=== PATIENT | female | born 1965 | race African-American/Black ===

== ENCOUNTER 2017-11-24 11:17 | Day surgery (SDC) | payer MEDICAID ==
[~2017-11-24 11:17] MED LIST: Buffered Lidocaine 0.9% SYRIN* 5 ML/SYR SYRINGE INTRADERM ONE
[2017-11-24] MEDS ORDERED: Clindamycin 900 MG IVPREMIX(* 900 MG/50 ML SDV IV ONE ×2 (11:59)
[2017-11-24] MEDS ORDERED: fentaNYL* 50 MCG/ML 2 ML VIAL (100 MCG VIAL) ONE ×2 (12:51)
[2017-11-24] MEDS ORDERED: Midazolam* 1 MG/ML 2 ML VIAL (2 MG) ONE ×2 (12:51)
[2017-11-24] MEDS ORDERED: Propofol* 10 MG/ML 20 ML BTL IV PUSH ONE ×2 (12:53)
[2017-11-24] MEDS ORDERED: Bupivacaine 0.25% SDV* 30 ML ONE ×6 (12:53→14:47)
[2017-11-24] MEDS ORDERED: Glycopyrrolate IV* 0.2 MG/ML 1 ML VIAL ONE ×6 (13:09→14:38)
[2017-11-24] MEDS ORDERED: Neostigmine Methylsulfate* 2 MG/2 ML SYRINGE ONE ×6 (13:09→14:38)
[2017-11-24] MEDS ORDERED: Succinylcholine* 20 MG/ML 10 ML VIAL ONE ×2 (13:38)
[2017-11-24] MEDS ORDERED: Dexamethasone IV* 4 MG/ML 1 ML (4 MG) ONE ×2 (13:38)
[2017-11-24] MEDS ORDERED: Atracurium* 10 MG/ML 10 ML VIAL ONE ×2 (13:38)
[2017-11-24] MEDS ORDERED: Ondansetron INJ* 2 MG/ML VIAL IV PRN (14:17)
[2017-11-24] MEDS ORDERED: fentaNYL* 50 MCG/ML 2 ML VIAL (100 MCG VIAL) IV PRN (14:17)
[2017-11-24] MEDS ORDERED: Naloxone* 0.4 MG/ML 1 ML VIAL IV PRN (14:17)
[2017-11-24] MEDS ORDERED: DiMENhydriNATE IV* 50 MG/ML VIAL IV PUSH PRN (14:17)
[2017-11-24] MEDS ORDERED: oxyCODONE/Acetamin 5/325 MG* TAB PO PRN (14:17)
[2017-11-24] MEDS ORDERED: HYDROcodone/ACETAMIN 5-325 MG* 1 TAB PO PRN (14:17)
[2017-11-24] MEDS ORDERED: HYDROmorphone INJ* 1 MG/ML CARPUJECT SYRINGE IV PRN (14:17)
[2017-11-24] MEDS ORDERED: methylPREDNISolone ACETATE 80* 80 MG/ML 1 ML VIAL ONE ×2 (14:24)
[2017-11-24] MEDS ORDERED: Ondansetron INJ* 2 MG/ML VIAL ONE ×2 (14:30)
[2017-11-24] MEDS ORDERED: Acetaminophen TAB* 325 MG ONE ×2 (15:20)
[2017-11-24] MEDS ORDERED: Ibuprofen TAB* 600 MG ONE ×2 (15:21)
[2017-11-24 16:08] VITALS: BP 177/95
--- NOTE | 2017-11-25 01:34 | OP ---
DATE OF OPERATION: 11/24/17 - [facility] DATE OF : 61 SURGEON: Marcella Hernandez MD ASSISTANTS: YOHAN Sykes and Robin Carrasquillo MS-III ANESTHESIOLOGIST: Dr. Mayberry. ANESTHESIA: General interscalene block. PRE-OP DIAGNOSIS: Right shoulder osteoarthritis. POST-OP DIAGNOSES: Right shoulder osteoarthritis with subacromial impingement and foreign body. OPERATIVE PROCEDURE: 1. Right shoulder arthroscopy with debridement including chondroplasty. 2. Removal of foreign body. 3. Revision decompression, debridement. 4. Intraarticular injection of 80 mg of Depo-Medrol. COMPLICATIONS: None. ESTIMATED BLOOD LOSS: Minimal. IMPLANTS USED: None. INDICATIONS: Maia Kendrick is a 52-year-old female who has had right shoulder pain and osteoarthritis for some time. She does not have all of her records, but had to have had some sort of Bankart repair with a possible rotator cuff repair. She has an MRI demonstrated and x-rays advanced osteoarthritis in the glenohumeral joint as well as small foreign body in the glenoid anteriorly that is impinging against the anterior surface of the supraspinatus. Risks and benefits of surgery versus nonoperative treatment were discussed at length. The patient is young and I would ultimately recommend a total shoulder replacement, but she has explicitly stated she will not be compliant with postoperative restrictions. At this point, we are offering her arthroscopy with debridement in the hopes that she gets some relief from her symptoms. DESCRIPTION OF PROCEDURE: The patient was greeted in the preoperative area by the attending surgeon. Correct extremity was marked and consent was confirmed. The patient underwent interscalene nerve block by the anesthesiologist after which she was brought back to the operating suite, where she was placed in supine position on the operating table. She then underwent general anesthesia with endotracheal intubation after which she was placed in the left lateral decubitus position with bony prominences padded, axillary roll. She was secured with a peg board. The right shoulder was draped with 10 pounds of traction. The right shoulder was prepped and draped in the usual sterile fashion beginning with chlorhexidine soap scrub and alcohol wipe and a final prep with ChloraPrep. After appropriate surgical pause indicating side, site, and procedure and administration of antibiotics, the standard posterolateral portal was made sharply with an 11 blade. Scope was introduced into the joint, the joint was examined. There were grade 3 and 4 changes with unstable flaps of the humeral head as well as a glenoid. The anterior posterior and superior glenoid had unstable frame which was debrided back. The subscap appeared to be intact. There was abundant synovitis anteriorly. The undersurface of the rotator cuff had an intact cable, but partial thickness tearing. Inferior recess had abundant synovitis. The anterior portal was made in an outside-in fashion. The shaver was used to do a chondroplasty of the glenohumeral joint and remove the unstable flaps. There were small loose bodies that were floating around which was lavaged. The osteophyte inferiorly was debrided back. A gentle synovectomy was done to prevent any kind of diffuse bleeding. The subscap was examined. The 70-degree scope was then utilized to look for the possible penetrating foreign body, which was identified and appeared to be a peek anchor. This was then carefully removed in a piecemeal fashion with the shaver and grasper, so that was more blunt and further recess close to the glenoid. The joint was thoroughly lavaged and irrigated. Attention was then directed to the subacromial space. The scope was positioned in the subacromial space. The lateral portal was made in an outside-in fashion. The shaver was used to debride the abundant bursa that was present. The rotator cuff appeared to be intact, but had a roughness to it. There was a bursa that was present and evidence of a previous subacromial decompression. No evidence of rotator cuff repair. No sutures were identified. The shaver was used to debride the bursa back. The electrocautery device was used to skeletonize the under surface of the acromion. Previous acromioplasty had been done, but there was an irregular edge. This was then debrided back using a 4-0 oval bur. Once this was complete, final images were obtained. An 18-gauge needle was placed intra- articularly and 80 mg of Depo- Medrol and 5 cc of Marcaine was injected intra- articularly. Sterile dressings were applied as well as a Cryo/Cuff and a regular sling. She was awoken from anesthesia and transferred to the PACU in stable condition. POSTOPERATIVE PLAN: She will be nonweightbearing. She will be range of motion as tolerated. Discharged on pain medications as well as antibiotics. DVT prophylaxis considered, but deferred due to no previous personal or family history. I will see the patient back in 10 to 14 days. [id number]/[facility] #: [id number] [place]
== END 2017-11-24 15:45 | disposition home or self-care (01) ==
LOC: OR 11:17
PROVIDERS: ATTEND Orthopaedic Surgery
DX: M75.41 Impingement syndrome of right shoulder (principal); M19.011 Primary osteoarthritis, right shoulder; F17.210 Nicotine dependence, cigarettes, uncomplicated; I10 Essential (primary) hypertension; J44.9 Chronic obstructive pulmonary disease, unspecified; J45.909 Unspecified asthma, uncomplicated; F41.8 Other specified anxiety disorders; G40.89 Other seizures
CPT/HCPCS: A9270-GY; J0330; J1040; J1100; J2250; J2405; J2704; J3010

== ENCOUNTER 2018-01-19 05:52 | Inpatient (IN) | payer MEDICAID ==
--- NOTE | 2018-01-05 22:31 | HP ---
HISTORY AND PHYSICAL: DATE OF SURGERY: 01/19/18 ATTENDING SURGEON: Marcella Hernandez MD * (DICTATED BY YOHAN CRUZ) PROCEDURE: Right total shoulder replacement. CHIEF COMPLAINT: Right shoulder pain. HISTORY OF PRESENT ILLNESS: Maia is a 52-year-old female who presents to the clinic for followup of her right shoulder. She has failed conservative measures to include right shoulder arthroscopic decompression and removal of foreign body, intraarticular injections and physical therapy. Therefore, she has agreed to undergo a right total shoulder replacement with Dr. Hernandez on . PAST MEDICAL HISTORY: Hypertension, COPD, asthma, high cholesterol, arthritis, hep B and C, lupus, seizure disorder, anxiety, depression, fibromyalgia. PAST SURGICAL HISTORY: At least 30 surgeries including the right shoulder Bankart repair and recent right shoulder arthroscopy with debridement and removal of foreign body and intraarticular injection with Dr. Hernandez. MEDICATIONS: 1. Hydroxyzine 50 mg 1 to 2 tabs at night for insomnia. 2. Nicotrol 10 mg 1 cartridge daily. 3. Stool softener 100 mg take 1 by mouth 3 times a day as needed for constipation. 4. Percocet 5/325 one to two every 4 to 6 hours as needed for pain. 5. Clindamycin 300 mg 1 by mouth 4 times a day x3 days. 6. Estradiol 1 mg 1 by mouth everyday. 7. Ibuprofen 600 mg 3 times a day, take with food. 8. Celexa 20 mg 1 by mouth daily. 9. Cyclobenzaprine 10 mg by mouth 3 times a day as needed for spasms. 10. Klonopin 1 mg 1 by mouth twice a day as needed for anxiety. 11. Sumatriptan 100 mg take 1 at onset of migraine, may repeat in 1 to 2 hours. ALLERGIES: KEFLEX, NAPROXEN, LATEX. FAMILY HISTORY: Positive for cancer, rheumatoid arthritis. SOCIAL HISTORY: She lives with her child, she is disabled. She smokes 1 pack a day for 42 years. She reports alcohol consumption. She exercises regularly. She is right hand dominant. REVIEW OF SYSTEMS: A 14-point review of systems was reviewed with the patient. Positive for current complaint of right shoulder pain, otherwise negative. Denies fever, chills, chest pain or shortness of breath, history of bleeding disorder, history of DVT or PE. PHYSICAL EXAMINATION GENERAL: A 52-year-old well-developed well-nourished female, in no acute distress. Alert and oriented x3. Appropriate mood and affect. VITAL SIGNS: Pulse 69, blood pressure 110/60, respiratory rate 16, temperature 97.7, pain level 6. HEENT: Normocephalic, atraumatic, PERRLA. NECK: Supple. Throat clear. PULMONARY: Lungs clear to auscultation bilaterally. No wheezing, rhonchi, or rales. CARDIO: Regular rate and rhythm, S1, S2. No murmurs, gallops, or rubs. No edema. ABDOMEN: Positive bowel sounds. Soft, nontender. NEUROLOGICAL: Alert and oriented x3. Cranial nerves grossly intact. Sensation intact to light touch. EXTREMITIES: Right upper extremity: Skin is intact. Well-healed surgical incision. No warmth or erythema. Forward flexion, abduction 90, external rotation to 30 with pain, +4/5 strength to rotator cuff testing, +2 radial pulse. Sensation intact to light touch distally. Left upper extremity: Skin is intact. No warmth or erythema. Nontender to palpation. Full pain-free range of motion. Neurovascularly intact. STUDIES: X-rays and MRI of the right shoulder reveal glenohumeral joint arthritis with subluxation of the humerus and partial tearing of the supraspinatus tendon. IMPRESSION: Right shoulder osteoarthritis and rotator cuff arthropathy. PLAN/RECOMMENDATIONS: The patient is scheduled to undergo a right total shoulder replacement with Dr. Hernandez on 01/19/18. She will follow up in 10 to 14 days for postop followup and suture removal. She was sent for CT for preoperative planning prior to surgery. Percocet is sent to the patient's pharmacy for postop pain management. YOHAN CRUZ [id number]/[facility] #: [id number] [place]
[2018-01-19] MEDS ORDERED: Dexamethasone IV* 4 MG/ML 1 ML (4 MG) ONE (05:58)
--- OUTSIDE RECORDS SUMMARY | 2018-01-19 05:58 | XMS REPORT ---
:1965 External Reference #:[id number] [facility] Address [address] [address] Phone [phone] Care Team Providers Name Role Phone Nir Emery MD Primary Care Physician Unavailable Payers Type Date Identification Numbers Payment Provider Subscriber Medicaid Policy Number: [id number] Medicaid Maia Kendrick Group Name: [id number] PayID: [id number] [place] [address] Problems Date Description Provider Status Onset: 09/12/2017 Depressive disorder Robert Felix NP Active Onset: 11/12/2017 Localized, primary osteoarthritis of the Marcella Hernandez MD Active shoulder region Onset: 11/12/2017 Disorder of shoulder Marcella Hernandez MD Active Onset: 11/21/2017 History of hepatitis C Robert Felix NP Active Onset: 12/09/2017 Chondromalacia Marcella Hernandez MD Active Onset: 12/09/2017 Synovitis and tenosynovitis Marcella Hernandez MD Active Family History Date Family Member(s) Problem(s) Comments General No history given Father Had 4 different types of cancers-pt. not sure which Mother due to AIDS () - at age 40 after blood transfusion Siblings 3 Sisters-Does not know hx. Social History Type Date Description Comments Marital Status Lives With Children ETOH Use Rarely consumes alcohol Smoking Patient is a current smoker, smokes 1 1/2 ppd x 40+ yrs every day Daily Caffeine Consumes on average 1 cup of regular coffee per day Daily Caffeine Cola 20 ozs 3 x week Exercise Type/Frequency Exercises regularly Allergies, Adverse Reactions, Alerts Date Description Reaction Status Severity Comments 09/08/2017 Keflex active severe stomach cramp 09/08/2017 Naproxen active severe stomach cramps 10/18/2017 Latex active Medications Medication Date Status Form Strength Qnty SIG Indications Ordering Provider Hydroxyzine HCL 12/09 Active Tablets 50mg 30tab 1-2 tablets G47.00 s QHS insomnia KARI Felix Stool Softener 11/25 Active Capsules 100mg 60cap Take 1 by s mouth three Yaseen, times a day as needed for constipation Percocet 11/24 Active Tablets 5-325mg 60tab 1-2 tabs by s mouth every Yaseen, 4-6 hours as MD needed post op pain Estradiol 09/08 Active Tablets 1mg 30tab 1 by mouth s every day KARI Felix Ibuprofen 09/08 Active Tablets 600mg 90tab take one s tablet by KARI Felix mouth three times a day as needed with food Celexa 09/08 Active Tablets 20mg 30tab 1 by mouth s every day KARI Felix Cyclobenzaprine 09/08 Active Tablets 10mg 60tab one by mouth Robert HCL s three times a KARI Felix day as needed spasm Klonopin 09/08 Active Tablets 1mg 60tab 1 by mouth Robert s twice a day KARI Felix as needed for anxiety Sumatriptan 09/08 Active Tablets 100mg 9tabs take one tablet at KARI Felix migraine onset may repeat 1 in 2 hours. Maximum monthly dose 800mg Nicotrol 12/09 Hx Inhaler 10mg 168un one cartridge Z72.0 its 6-16 times KARI Felix - daily 01/10 Clindamycin HCL 11/24 Hx Capsules 300mg 12cap take 1 by s mouth four Yaseen, - times a day 01/09 for 3 No Active 09/08 Hx Unknown Medications /2016 - 09/08 Sumatriptan 09/08 Hx Tablets 50mg 9tabs take 1 at Robert Succinate onset of KARI Felix - migraine. march 18 repeat 2 hours if needed. max 2x/week. max daily dose 100mg Gabapentin 09/08 Hx Capsules 100mg 60cap take 1 to 3 G47.00 Robert s capsules by KARI Felix - mouth at 12/09 night Lidocaine 09/08 Hx Patches 5% 30uni apply patch M79.1 ts to affected KARI Felix - area up to 12 12/10 hours once a day as needed Trazodone HCL 00/00 Hx Tablets 50mg 1 tablet at Robert /0000 bedtime as KARI Felix - needed 09/08 Medications Administered in Office Medication Date Status Form Strength Qnty SIG Indications Ordering Provider Triamcinolone 11/12/ Administered Injection Zaneb (Kenalog) 2017 MD David Triamcinolone 10/05/ Administered Injection Suze (Kenalog) 2016 MARIVEL Polo Vital Signs Date Vital Result Comment 01/10/2018 Height 61 inches 5'1" Weight 156.00 lb Heart Rate 64 /min BP Systolic Sitting 138 mmHg BP Diastolic Sitting 94 mmHg O2 % BldC Oximetry 98 % BMI (Body Mass Index) 29.5 kg/m2 01/04/2018 Heart Rate 69 /min BP Systolic 110 mmHg BP Diastolic 60 mmHg Respiratory Rate 16 /min Body Temperature 97.7 F Pain Level 6 12/09/2017 Weight 153.50 lb Heart Rate 66 /min BP Systolic 128 mmHg BP Diastolic 80 mmHg O2 % BldC Oximetry 91 % 12/09/2017 Height 61 inches 5'1" Weight 153.00 lb BP Systolic 128 mmHg BP Diastolic 80 mmHg Respiratory Rate 18 /min Body Temperature 97.3 F Pain Level 6 BMI (Body Mass Index) 28.9 kg/m2 11/12/2017 Height 61 inches 5'1" Weight 153.00 lb BP Systolic 126 mmHg BP Diastolic 76 mmHg Respiratory Rate 20 /min Pain Level 8 BMI (Body Mass Index) 28.9 kg/m2 10/18/2017 Height 61 inches 5'1" Weight 160.00 lb Heart Rate 57 /min BP Systolic Sitting 118 mmHg BP Diastolic Sitting 74 mmHg Body Temperature 98.4 F O2 % BldC Oximetry 96 % BMI (Body Mass Index) 30.2 kg/m2 10/05/2017 Height 61 inches 5'1" Weight 153.00 lb BMI (Body Mass Index) 28.9 kg/m2 09/08/2017 Height 61 inches 5'1" Weight 153.75 lb Heart Rate 57 /min BP Systolic 130 mmHg BP Diastolic 78 mmHg Body Temperature 97.6 F O2 % BldC Oximetry 99 % BMI (Body Mass Index) 29.0 kg/m2 Results Test Date Test Result H/L Range Note Inr/Protime 01/06/2018 Inr 1.02 0.77-1.02 Laboratory test finding 01/06/2018 Partial Thrombo 33.5 seconds 26.0- 36.3 Time PTT CBC Auto Diff 01/06/2018 White Blood Count 7.9 10^3/uL 3.5-10.8 Red Blood Count 5.02 10^6/uL 4.0-5.4 Hemoglobin 15.8 g/dL 12.0-16.0 Hematocrit 46 % 35-47 Mean Corpuscular Volume 92 fL 80-97 Mean Corpuscular Hemoglobin 31 pg 27-31 Mean Corpuscular HGB Conc 34 g/dL 31-36 Red Cell Distribution Width 14 % 10.5-15 Platelet Count 151 10^3/uL 150-450 Mean Platelet Volume 9 um3 7.4-10.4 Abs Neutrophils 5.0 10^3/uL 1.5-7.7 Abs Lymphocytes 2.1 10^3/uL 1.0-4.8 Abs Monocytes 0.6 10^3/uL 0-0.8 Abs Eosinophils 0.1 10^3/uL 0-0.6 Abs Basophils 0.1 10^3/uL 0-0.2 Abs Nucleated RBC 0 10^3/uL Granulocyte % 63.5 % 38-83 Lymphocyte % 26.9 % 25-47 Monocyte % 7.6 % High 0-7 Eosinophil % 1.2 % 0-6 Basophil % 0.8 % 0-2 Nucleated Red Blood Cells % 0 Urinalysis Profile 01/06/2018 Urine Color Yellow Urine Appearance Cloudy Urine Specific [place] 1.023 1.010-1.030 Urine pH 6.0 5-9 Urine Urobilinogen Negative Negative Urine Ketones Negative Negative Urine Protein Negative Negative Urine Leukocytes Trace Negative Urine Blood Negative Negative Urine Nitrite Negative Negative Urine Bilirubin Negative Negative Urine Glucose Negative Negative Urine White Blood Cell Trace(0-5/hpf) Absent Urine Red Blood Cell Absent Absent Urine Bacteria 1+ Absent Urine Squamous Epithelial Cell Present Absent Basic Metabolic Panel 01/06/2018 Sodium 144 mmol/L 133-145 Potassium 4.0 mmol/L 3.5-5.0 Chloride 109 mmol/L 101-111 Co2 Carbon Dioxide 31 mmol/L 22-32 Anion Gap 4 mmol/L 2-11 Glucose 74 mg/dL 70-100 Blood Urea Nitrogen 16 mg/dL 6-24 Creatinine 0.97 mg/dL High 0.51-0.95 BUN/Creatinine Ratio 16.5 8-20 Calcium 9.2 mg/dL 8.6-10.3 Egfr Non- 59.8 >60 Egfr 77.0 >60 1 Laboratory test finding 01/06/2018 TSH (Thyroid Stim Horm) 0.65 mcIU/mL 0.34-5.60 Free T4 (Free Thyroxine) 0.91 ng/dL 0.61-1.12 Type & Screen 01/06/2018 Patient Blood Type O Negative Antibody Screen NEGATIVE Urine Culture And 01/06/2018 Urine Culture SEE RESULT BELOW 2 Sensitivities CBC Auto Diff 12/03/2017 White Blood Count 10.5 10^3/uL 3.5-10.8 Red Blood Count 5.20 10^6/uL 4.0-5.4 Hemoglobin 16.2 g/dL High 12.0-16.0 Hematocrit 48 % High 35-47 Mean Corpuscular Volume 93 fL 80-97 Mean Corpuscular Hemoglobin 31 pg 27-31 Mean Corpuscular HGB Conc 34 g/dL 31-36 Red Cell Distribution Width 15 % 10.5-15 Platelet Count 158 10^3/uL 150-450 Mean Platelet Volume 10 um3 7.4-10.4 Abs Neutrophils 7.6 10^3/uL 1.5-7.7 Abs Lymphocytes 2.0 10^3/uL 1.0-4.8 Abs Monocytes 0.6 10^3/uL 0-0.8 Abs Eosinophils 0.2 10^3/uL 0-0.6 Abs Basophils 0.1 10^3/uL 0-0.2 Abs Nucleated RBC 0 10^3/uL Granulocyte % 73.0 % 38-83 Lymphocyte % 18.8 % Low 25-47 Monocyte % 5.3 % 1-9 Eosinophil % 1.8 % 0-6 Basophil % 1.1 % 0-2 Nucleated Red Blood Cells % 0.1 Comp Metabolic Panel 11/12/2017 Sodium 139 mmol/L 133-145 Potassium 4.1 mmol/L 3.5-5.0 Chloride 108 mmol/L 101-111 Co2 Carbon Dioxide 25 mmol/L 22-32 Anion Gap 6 mmol/L 2-11 Glucose 78 mg/dL 70-100 Blood Urea Nitrogen 14 mg/dL 6-24 Creatinine 0.82 mg/dL 0.51-0.95 BUN/Creatinine Ratio 17.1 8-20 Calcium 8.6 mg/dL 8.6-10.3 Total Protein 6.3 g/dL Low 6.4-8.9 Albumin 3.9 g/dL 3.2-5.2 Globulin 2.4 g/dL 2-4 Albumin/Globulin Ratio 1.6 1-3 Total Bilirubin 0.40 mg/dL 0.2-1.0 Alkaline Phosphatase 90 U/L 34-104 Alt 31 U/L 7-52 Ast 26 U/L 13-39 Egfr Non- 72.6 >60 Egfr 93.4 >60 3 Lipid Profile (Trig/Chol/HDL) 10/18/2017 Triglycerides 75 mg/dL 4 Cholesterol 192 mg/dL 5 HDL Cholesterol 42.6 mg/dL 6 LDL Cholesterol 134 mg/dL 7 Laboratory test finding 10/18/2017 Rheumatoid Factor <15 IU/mL <15 8 TSH (Thyroid Stim Horm) 1.10 mcIU/mL 0.34-5.60 9 Connective Tissue Panel 10/18/2017 Anti-Nuclear Antibody 2.8 U High 10 Cyclic Citrullinated Peptide <15.6 U 11 Interpretation See Comment 12 Laboratory test finding 10/18/2017 C Reactive Protein 4.22 mg/L < 5.00 13 Erythrocyte Sed Rate 8 mm/Hr 0-30 14 Comp Metabolic Panel 10/18/2017 Sodium 136 mmol/L 133-145 Potassium 4.4 mmol/L 3.5-5.0 Chloride 106 mmol/L 101-111 Co2 Carbon Dioxide 24 mmol/L 22-32 Anion Gap 6 mmol/L 2-11 Glucose 82 mg/dL 70-100 Blood Urea Nitrogen 20 mg/dL 6-24 Creatinine 0.90 mg/dL 0.51-0.95 BUN/Creatinine Ratio 22.2 High 8-20 Calcium 9.0 mg/dL 8.6-10.3 Total Protein 6.7 g/dL 6.4-8.9 Albumin 4.0 g/dL 3.2-5.2 Globulin 2.7 g/dL 2-4 Albumin/Globulin Ratio 1.5 1-3 Total Bilirubin 0.40 mg/dL 0.2-1.0 Alkaline Phosphatase 77 U/L 34-104 Alt 39 U/L 7-52 Ast 20 U/L 13-39 Egfr Non- 65.2 >60 Egfr 83.9 >60 15 CBC Auto Diff 10/18/2017 White Blood Count 13.3 10^3/uL High 3.5-10.8 Red Blood Count 5.34 10^6/uL 4.0-5.4 Hemoglobin 16.5 g/dL High 12.0-16.0 Hematocrit 49 % High 35-47 Mean Corpuscular Volume 92 fL 80-97 Mean Corpuscular Hemoglobin 31 pg 27-31 Mean Corpuscular HGB Conc 34 g/dL 31-36 Red Cell Distribution Width 14 % 10.5-15 Platelet Count 192 10^3/uL 150-450 Mean Platelet Volume 9 um3 7.4-10.4 Abs Neutrophils 10.8 10^3/uL High 1.5-7.7 Abs Lymphocytes 1.8 10^3/uL 1.0-4.8 Abs Monocytes 0.6 10^3/uL 0-0.8 Abs Eosinophils 0.1 10^3/uL 0-0.6 Abs Basophils 0.1 10^3/uL 0-0.2 Abs Nucleated RBC 0.01 10^3/uL Granulocyte % 80.6 % 38-83 Lymphocyte % 13.4 % Low 25-47 Monocyte % 4.6 % 1-9 Eosinophil % 0.7 % 0-6 Basophil % 0.7 % 0-2 Nucleated Red Blood Cells % 0 1 Because ethnic data is not always readily available, this report includes an eGFR for both -Americans and non- Americans. The National Kidney Disease Education Program (NKDEP) does not endorse the use of the MDRD equation for patients that are not between the ages of 18 and 70, are , have extremes of body size, muscle mass, or nutritional status, or are non- or non-. According to the National Kidney Foundation, irrespective of diagnosis, the stage of the disease is based on the level of kidney function: Stage Description GFR(mL/min/1.73 m(2)) 1 Kidney damage with normal or decreased GFR 90 2 Kidney damage with mild decrease in GFR 60-89 3 Moderate decrease in GFR 30-59 4 Severe decrease in GFR 15-29 5 Kidney failure <15 (or dialysis) 2 SEE RESULT BELOW Name: MAIA KENDRICK : [address]: Marcella Hernnadez MD Acct: [id number] Unit: [id number] AGE: 52 Location: [facility] Re01/06/18 SEX: F Status: REG REF SPEC: [id number] HERBERTH: 01/06/[address]: Marcella Hernandez MD REQ: [id number] RECD: 01/06/18 STATUS: COMP _ SOURCE: URINE SPDESC: ORDERED: Urine Culture QUERIES: Urine Source: Clean Catch Procedure Result Reported Site Urine Culture Final 01/07/18- 1606 ML No Growth (<1,000 CFU/mL) * ML - Main Lab . END OF REPORT DEPARTMENT OF PATHOLOGY, [address] [place] [address] Tuan De La Cruz M.D. Director [facility] # [id number] 3 Because ethnic data is not always readily available, this report includes an eGFR for both -Americans and non- Americans. The National Kidney Disease Education Program (NKDEP) does not endorse the use of the MDRD equation for patients that are not between the ages of 18 and 70, are , have extremes of body size, muscle mass, or nutritional status, or are non- or non-. According to the National Kidney Foundation, irrespective of diagnosis, the stage of the disease is based on the level of kidney function: Stage Description GFR(mL/min/1.73 m(2)) 1 Kidney damage with normal or decreased GFR 90 2 Kidney damage with mild decrease in GFR 60-89 3 Moderate decrease in GFR 30-59 4 Severe decrease in GFR 15-29 5 Kidney failure <15 (or dialysis) 4 Desirable: <150 Borderline High: 150-199 High: 200-499 Very High: >500 5 Desirable: <200 Borderline High: 200-239 High: >239 6 Low: <40 Desirable: 40-60 High: >60 7 Desirable: <100 Near Optimal: 100-129 Borderline High: 130-159 High: 160-189 Very High: >189 8 Test Performed by: [address] [id number] FASTING 10 HOUR 10 Interpretation: Weak Positive (1.1-2.9) REFERENCE VALUE <=1.0 (Negative) 11 REFERENCE VALUE <20.0 (Negative) 12 Tests for antibodies to dsDNA and JESSICA antigens are not performed automatically unless the HANNAH result is > or= 3.0 U. Studies performed at [facility] indicate that positive HANNAH results <3.0 U are rarely accompanied by positive second order tests. Test Performed by: [address] [address] 13 Acute inflammation: >10.00 14 FASTING 10 HOUR 15 Because ethnic data is not always readily available, this report includes an eGFR for both -Americans and non- Americans. The National Kidney Disease Education Program (NKDEP) does not endorse the use of the MDRD equation for patients that are not between the ages of 18 and 70, are , have extremes of body size, muscle mass, or nutritional status, or are non- or non-. According to the National Kidney Foundation, irrespective of diagnosis, the stage of the disease is based on the level of kidney function: Stage Description GFR(mL/min/1.73 m(2)) 1 Kidney damage with normal or decreased GFR 90 2 Kidney damage with mild decrease in GFR 60-89 3 Moderate decrease in GFR 30-59 4 Severe decrease in GFR 15-29 5 Kidney failure <15 (or dialysis) Procedures Date CPT Code Description Status 01/06/2018 Mammogram Completed 11/24/2017 77329 Arthroscopy,Shoulder Decompression Of Subacromial Space Completed W/Acromio 11/24/2017 24095 Arthroscopy Shoulder Debridement Extensive Completed 11/12/2017 Inject/Drain Joint/Bursa Major Completed 10/05/2017 Inject/Drain Joint/Bursa Major Completed 12/04/2013 Colonoscopy Completed 10/13/2012 81320 Nerve Conduction, Sensory Completed 10/13/2012 77809 Nerve Conduction, Motor W/O F-Wave Study Completed 10/13/2012 38946 Needle Electromyography Complete, Five Or More Muscles Completed Studied 09/22/2012 44477 ECHO Transthoracic, Real-Time 2D With Doppler And Color Completed Flow Encounters Type Date Location Provider CPT E/M Dx Office Visit 11/12/2017 1:30p [facility] [place] [address] M19.011 [facility] M75.41 Office Visit 10/18/2017 10:20a [facility] [place] [address] Z12.31 Benjamín Z72.0 Office Visit 10/05/2017 8:15a [facility] [place] [address] M25.511 [facility] M19.011 M75.101 Office Visit 09/08/2017 3:00p [facility] [place] [address] J38.3 Benjamín M25.511 G47.00 M79.1 Z13.220 Office Visit 10/13/2012 2:30p [facility] Panfilo Cooper, [address] 354.0 [facility] Diaz 723.1 Plan of Care Future Appointment(s):01/18/2018 11:15 am - Alexander Rincon M.D. at [facility]01/19/2018 7:30 am - Suze Polo PA-C at [facility]01/19/2018 7:30 am - Marcella Hernandez MD at [facility]02/01/2018 1:15 pm - Marcella Hernandez MD at [facility]01/10/2018 - Robert Felix NPZ01.818 Encounter for other preprocedural akozoaahgtmF54.211 Chondromalacia, right byvtbaznN29.0 IytstzpazQ48.11 Unspecified lump in the right breast, upper outer quadrantComments:As we discussed, I have referred you to Dr. Rincon for further evaluation and treatment of the breast mass that was seen on mammogram.Referral:Alexander Rincon MD, Surgery,YtibqmoF67.210 Nicotine dependence, cigarettes, uncomplicated
[2018-01-19] MEDS ORDERED: Famotidine IV* 10 MG/ML 2 ML (20 mg) ONE (05:59)
[2018-01-19] MEDS ORDERED: Buffered Lidocaine 0.9% SYRIN* 5 ML/SYR SYRINGE ONE (05:59)
[2018-01-19] MEDS ORDERED: Clindamycin 900 MG IVPREMIX(* 900 MG/50 ML SDV IV ONE (05:59)
[2018-01-19] MEDS ORDERED: Famotidine IV* 10 MG/ML 2 ML (20 mg) IV ONE (06:00)
[2018-01-19] MEDS ORDERED: Dexamethasone IV* 4 MG/ML 1 ML (4 MG) IV SLOW PU ONE (06:00)
[2018-01-19] MEDS ORDERED: Mivacurium Chloride* 20 MG/10 ML VIAL IV ONE (06:56)
[2018-01-19] MEDS ORDERED: Propofol* 10 MG/ML 20 ML BTL IV PUSH ONE (06:56)
[2018-01-19] MEDS ORDERED: Lidocaine 2% PF * 5 ML VIAL ONE (06:56)
[2018-01-19] MEDS ORDERED: fentaNYL* 50 MCG/ML 2 ML VIAL (100 MCG VIAL) ONE ×2 (06:57→08:03)
[2018-01-19] MEDS ORDERED: Midazolam* 1 MG/ML 5 ML VIAL (5 MG) ONE (06:57)
[2018-01-19] MEDS ORDERED: Bupivacaine 0.25% SDV* 30 ML ONE (07:13)
[2018-01-19] MEDS ORDERED: ROPIVACAINE 5 MG/ML 30 ML BTL (0.5%) ONE (07:28)
[2018-01-19] MEDS ORDERED: EPHEDrine (Pressors)* 50 MG/ML VIAL ONE (08:18)
[2018-01-19] MEDS ORDERED: Phenylephrine INJ* 10 MG/ML 1 ML VIAL (10 MG) ONE (08:37)
[2018-01-19] MEDS ORDERED: Glycopyrrolate IV* 0.2 MG/ML 1 ML VIAL ONE (08:46)
[2018-01-19] MEDS ORDERED: Levalbuterol 0.63MG/3ML NEB* UNIT OF USE INH ONE (08:57)
[2018-01-19] MEDS ORDERED: oxyCODONE/Acetamin 5/325 MG* TAB PO PRN ×2 (08:57→10:32)
[2018-01-19] MEDS ORDERED: fentaNYL* 50 MCG/ML 2 ML VIAL (100 MCG VIAL) IV PRN (08:57)
[2018-01-19] MEDS ORDERED: PROCHLORPERAZINE INJ 5 MG/ML 2 ML VIAL IV PRN (08:57)
[2018-01-19] MEDS ORDERED: HYDROcodone/ACETAMIN 5-325 MG* 1 TAB PO PRN (08:57)
[2018-01-19] MEDS ORDERED: Naloxone* 0.4 MG/ML 1 ML VIAL IV PRN (08:57)
[2018-01-19] MEDS ORDERED: Ondansetron INJ* 2 MG/ML VIAL ONE (09:31)
[2018-01-19] MEDS ORDERED: Acetaminophen TAB* 325 MG PO PRN (10:32)
[2018-01-19] MEDS ORDERED: Docusate CAP* 100 MG PO PRN (10:32)
[2018-01-19] MEDS ORDERED: Morphine INJ* 2 MG/ML 1 ML CARPUJECT IV PRN (10:32)
[2018-01-19] MEDS ORDERED: oxyCODONE TAB* 5 MG TAB PO PRN (10:32)
[2018-01-19] MEDS ORDERED: diPHENhydraMINE PO* 25 MG PO PRN (10:32)
[2018-01-19] MEDS ORDERED: Ondansetron TAB* 4 MG PO PRN (10:32)
[2018-01-19] MEDS ORDERED: diPHENhydraMINE IV* 50 MG/ML 1 ml VIAL (BENADRYL) IV PRN (10:32)
[2018-01-19] MEDS ORDERED: Ondansetron INJ* 2 MG/ML VIAL IV PRN (10:32)
[2018-01-19] MEDS ORDERED: traZODone TAB* 50 MG TAB PO PRN (10:32)
[2018-01-19] MEDS ORDERED: Polyethylene Glycol 3350* 17 GM PACKET PO PRN (10:32)
[2018-01-19] MEDS ORDERED: Bisacodyl SUPP* 10 MG SUPP PR PRN (10:32)
[2018-01-19] MEDS ORDERED: Cyclobenzaprine TAB* 10 MG PO PRN (10:32)
[2018-01-19] MEDS ORDERED: Magnesium Hydroxide LIQ* 30 ML UDC PO PRN (10:32)
[2018-01-19] MEDS ORDERED: SUMAtriptan TAB* 100 MG PO PRN (10:40)
--- NOTE | 2018-01-19 11:35 | RAD ---
INDICATION: Postoperative right shoulder arthroplasty COMPARISON: Right shoulder September 27, 2017 TECHNIQUE: AP and axillary views were obtained. FINDINGS: There is interval right shoulder arthroplasty. The components of believed to be normally seated. This is the first postprocedure exam. As a surgical drain in place. No additional findings. IMPRESSION: POSTOPERATIVE RIGHT SHOULDER ARTHROPLASTY.
[2018-01-19] MEDS ORDERED: Nicotine Inhaler* 10 MG AMP INH PRN (13:30)
[2018-01-19] MEDS ORDERED: Mouth Piece, Nicotine* 1 EACH CARTRIDGE INH ONE (13:30)
[2018-01-19] MEDS: clonazePAM TAB(*) 1 MG PO SCH ×2 (14:38→21:20)
[2018-01-19] MEDS: Nicotine GUM* 2 MG PO PRN ×2 (14:39→21:30)
[2018-01-19] MEDS: oxyCODONE/Acetamin 5/325 MG* TAB PO PRN ×2 (14:44→21:20)
[2018-01-19] MEDS: Clindamycin 600 MG IVPREMIX(* 600 MG/50 ML SDV IV SCH ×2 (16:49→23:45)
[2018-01-19] MEDS ORDERED: Citalopram TAB* 20 MG PO SCH (18:00)
[2018-01-19] MEDS ORDERED: Estradiol TAB(NF) 1 MG TAB PO SCH (18:00)
--- NOTE | 2018-01-20 00:51 | OP ---
CC: PCP, Robert Felix NP * DATE OF OPERATION: 01/19/18 - ROOM #339 ATTENDING SURGEON: Marcella Hernandez MD ASSISTANTS: YOHAN Sykes and Hillary , second diver assistant. ANESTHESIA: General interscalene block. ANESTHESIOLOGIST: Dr. France. PRE-OP DIAGNOSIS: Right shoulder glenohumeral arthritis. POST-OP DIAGNOSIS: Right shoulder glenohumeral arthritis. OPERATIVE PROCEDURE: Right total shoulder arthroplasty. COMPLICATIONS: None. ESTIMATED BLOOD LOSS: About 100. OUTPUTS: Drain x1. IMPLANTS USED: Simpliciti size 1 nucleus with a size 43 cobalt-chromium head, Aequalis Perform Cortiloc peg glenoid, model S30. INDICATIONS: Maia Kendrick is a 52-year-old female with advanced glenohumeral arthritis who underwent a previous arthroscopic debridement who had persistent pain and symptoms attributed to her arthritis. The risks and benefits of surgery were discussed at length and included, but not limited to bleeding, infection, damage to nerves, vessels, surrounding structures, wound nonhealing, persistent pain, need for further surgery, failure of the cuff repair, failure of the hardware, dislocation, fracture, risk of anesthesia. She has elected to proceed. After extensive discussion with the patient about her compliance and her postoperative restrictions, she had elected to proceed. She agreed to all the restrictions that deemed necessary for postoperative recovery. She underwent preoperative medical risk assessment and optimization by her primary care provider and was deemed medically optimized for surgery. DESCRIPTION OF PROCEDURE: The patient was greeted and then interscalene nerve block was done by the anesthesiologist. She was then brought back to the operating suite. She was placed in the supine position on the operating table. She then underwent general anesthesia with endotracheal intubation after which she was appropriately positioned in the bed in a lazy beach chair fashion. All bony prominences were padded. She was secured. The right shoulder was prepped and draped in the usual sterile fashion beginning with chlorhexidine soap, scrub, and alcohol wipe and a final prep with ChloraPrep. After appropriate surgical pause indicating site, side, procedure, administration of antibiotics, a deltopectoral incision was made using a 15 blade. The soft tissues were carefully dissected to expose the deltopectoral interval. The cephalic vein was identified and the cephalic vein as well as the deltoid were retracted laterally, the pec medially. The pec insertion was identified and the proximal centimeter was released. The biceps has previously been tenodesed from a previous surgery elsewhere. The soft tissues were carefully dissected proximally. The 3 sisters were suture ligated and cauterized to prevent any blood loss. The bicipital groove was tracked proximally to the subscap and thus, the subscap was identified and the superior and inferior borders were identified and then the subscap was released in a subscap peel fashion. This was then tagged with #5 Ethibond suture. The shoulder was gently externally rotated. There was advanced grade 4 changes with large anterior, inferior osteophytes present. The shoulder was then gently dislocated after the subscap was peeled against. Care was taken to stay on the bone to do the release. The osteophytes were identified and carefully removed using osteotome and rongeur and it has helped to identify the borders of the neck cut. The supraspinatus was intact. The head was fully exposed. A free- handed neck cut was then made using the sagittal saw. The humeral head was then placed on the back table and measured for later sizing for the implant. The canal was prepped in the normal fashion. The Simpliciti center guide was placed in the center of the cut and a pin was drilled in the center of the humeral face. The nucleus punch was then impacted into the position. After this, a protection plate was placed. Attention was then directed to the glenohumeral joint. The humerus was then relocated into the joint. Posterior retractor as well as a Hohmann replaced superiorly. There was advanced grade 4 changes to the glenoid. The subscap was then further released by releasing the superior middle and inferior glenohumeral ligaments. The labrum was then released from its entirety with gentle soft tissue retraction inferiorly and care not to damage any nerves and vessels. With the appropriate retractors in place including glenoid, neck retractor, the glenoid was visualized. A Simpson was used to remove any excess cartilage, which there was minimal. At this point, the center of the glenoid was identified. There was a slightly more wear anteriorly. Once the appropriate position was identified, this was then reamed with the 0.75 reamer. Excess bone and debris was removed. The center 8 mm drill peg was then drilled for the center of the glenoid. The guide was then placed appropriately in the 3 separate peg holes. The 3 peg holes were then drilled for placement of the glenoid. The shoulder was copiously irrigated. Cement was mixed on the back table. A trial was placed to make sure that it fit appropriately. Once the wound was thoroughly irrigated, again it was dried to allow for cement placement. When the cement was ready, it was placed into the 3 small pegs after which the final implant was then impacted into the position with excellent purchase. The attention was directed back to the humeral head and the protection plate was removed. A trial size 43 was placed and gently reduced and found to have appropriate amount of anterior, posterior shuck. No evidence of overstuffing. There is appropriate subscap tension. Three sutures were placed through the lesser tuberosity to allow for subscap closure. The final implant was impacted into position and reduced. The wounds were then copiously irrigated with sterile saline. The subscap was closed using a horizontal mattress as well as Christopher Heber-type configuration. The wounds were irrigated again. A drain was then placed and wounds were irrigated again. The deltopec was closed with #2 Ethibond. The wounds were irrigated again. The skin was closed in layers with 2-0 Vicryl and 3-0 Monocryl. Sterile dressings were applied as well as Cryo/Cuff and UltraSling without the pillow. She was awoken from anesthesia and transferred to PACU in stable condition. POSTOPERATIVE PLAN: She will be admitted for at least 1 day. She will receive 24 hours of postoperative antibiotics. DVT prophylaxis is only while in-house and she will be discharged on pain medications. [id number]/[facility] #: [id number] [facility]
[2018-01-20] MEDS: oxyCODONE/Acetamin 5/325 MG* TAB PO PRN ×2 (04:03→11:50)
[2018-01-20 05:47] LABS: Hematocrit 40 % (35-47); Hemoglobin 13.6 g/dl (12.0-16.0); Mean Platelet Volume 9 um3 (7.4-10.4); Platelet Count 157 10^3/ul (150-450)
[2018-01-20 06:05] LABS: EGFR Non-African American 79.3 (>60)
--- NOTE | 2018-01-20 06:44 | PN ---
Progress Note - Progress Note Date of Service: 01/20/18 Note: Pt was not in room for the 20 min duration during rounding. Per nursing, she has been comfortable Temp Pulse Resp BP Pulse Ox 98.1 F 62 18 107/64 93 01/20/18 03:54 01/20/18 03:54 01/20/18 04:03 01/20/18 03:54 01/20/18 03:54 Laboratory Results - last 24 hr 01/20/18 01/20/18 05:21 05:22 Hgb 13.6 Hct 40 Plt Count 157 MPV 9 Sodium 136 Potassium 4.0 Chloride 107 Carbon Dioxide 25 Anion Gap 4 BUN 14 Creatinine 0.76 Est GFR ( Amer) 102.0 Est GFR (Non-Af Amer) 79.3 BUN/Creatinine Ratio 18.4 Glucose 123 H Calcium 8.6 Will cosign YOHAN note.
[2018-01-20] MEDS: Clindamycin 600 MG IVPREMIX(* 600 MG/50 ML SDV IV SCH (07:39)
[2018-01-20] MEDS ORDERED: Nicotine PATCH 21 MG/24 HR* PATCH TRANSDERM SCH (08:00)
--- NOTE | 2018-01-20 08:08 | PN ---
Subjective Date of Service: 01/20/18 - Subjective Subjective: Pt came back to floor. Pt states still in pain. Drain in place. Compliant with sling. AFVSS sling in place. dressing and drain in place. silt grossly. standing and walking A/P POD#1 from R TSA drain to be d/c'd today sling at all times except exercises. NWB Weight: 152 lb Medication Orders: Current Medications Acetaminophen (Tylenol Tab*) 650 mg PO Q4H PRN PRN Reason: PAIN OR TEMPERATURE Bisacodyl (Dulcolax Supp*) 10 mg ID DAILY PRN PRN Reason: constipation Citalopram Hydrobromide (Celexa Tab*) 20 mg PO QPM [facility] Last Admin: 01/19/18 18:18 Dose: 20 mg Clonazepam (Klonopin Tab(*)) 1 mg PO TID [facility] Last Admin: 01/19/18 21:20 Dose: 1 mg Cyclobenzaprine HCl (Flexeril Tab*) 10 mg PO TID PRN PRN Reason: SPASMS Diphenhydramine HCl (Benadryl Iv*) 25 mg IV Q6H PRN PRN Reason: itching Diphenhydramine HCl (Benadryl Po*) 25 mg PO Q6H PRN PRN Reason: itching Docusate Sodium (Colace Cap*) 100 mg PO BID PRN PRN Reason: CONSTIPATION Enoxaparin Sodium (Lovenox(*)) 40 mg SUBCUT Q24H [facility] Estradiol (Estradiol Tab(Nf)) 1 mg PO QPM [facility] PRN Reason: Protocol Last Admin: 01/19/18 18:09 Dose: Not Given Clindamycin HCl/Dextrose (Cleocin 600 Mg Ivpremix(*) Sdv) 600 mg in 50 mls @ 100 mls/hr IV Q8H [facility] Stop: 01/20/18 08:29 Last Admin: 01/20/18 07:39 Dose: 100 mls/hr Lactated Ringer's (Lactated Ringers 1000 Ml Bag*) 1,000 mls @ 100 mls/hr IV PER RATE [facility] Lactulose (Lactulose*) 30 ml PO Q6H PRN PRN Reason: constipation Magnesium Hydroxide (Milk Of Magnesia Liq*) 30 ml PO Q6H PRN PRN Reason: constipation Morphine Sulfate (Morphine Inj (Syringe)*) 2 mg IV Q2H PRN PRN Reason: PAIN - BREAKTHROUGH Nicotine (Nicotine Inhaler*) 10 mg INH Q2H PRN PRN Reason: CRAVING Nicotine (Nicotine Patch 21 Mg/24 Hr*) 1 patch TRANSDERM DAILY@0800 RACQUEL Last Admin: 01/20/18 07:40 Dose: Not Given Nicotine Polacrilex (Nicotine Gum*) 2 mg PO Q2H PRN PRN Reason: CRAVING Last Admin: 01/19/18 21:30 Dose: 2 mg Ondansetron HCl (Zofran Inj*) 4 mg IV Q6H PRN PRN Reason: nausea Ondansetron HCl (Zofran Tab*) 4 mg PO Q6H PRN PRN Reason: NAUSEA Oxycodone HCl (Roxycodone Tab*) 10 mg PO Q4H PRN PRN Reason: PAIN - MODERATE TO SEVERE Last Admin: 01/20/18 07:39 Dose: 10 mg Oxycodone/Acetaminophen (Percocet 5/325 Tab*) 2 tab PO Q4H PRN PRN Reason: PAIN Last Admin: 01/20/18 04:03 Dose: 2 tab Oxycodone/Acetaminophen (Percocet 5/325 Tab*) 1 tab PO Q4H PRN PRN Reason: PAIN Pharmacy Profile Note (Nicotine Patch Removal Note*) 1 note PATCH OFF 2100 RACQUEL Polyethylene Glycol/Electrolytes (Miralax*) 17 gm PO DAILY PRN PRN Reason: Constipation Sumatriptan Succinate (Imitrex Tab*) 100 mg PO DAILY PRN PRN Reason: MIGRAINE HEADACHE Trazodone HCl (Desyrel Tab*) 25 mg PO BEDTIME PRN PRN Reason: insomnia Home Medications: Home Medications Medication Instructions Recorded Confirmed Type Cyclobenzaprine TAB* [Flexeril 10 mg PO TID PRN 08/31/12 01/19/18 History TAB*] SUMAtriptan TAB* [Imitrex*] 100 mg PO DAILY PRN 08/31/12 01/19/18 History clonazePAM TAB(*) [Klonopin TAB(*)] 1 mg PO TID 08/31/12 01/19/18 History Citalopram TAB* [Celexa TAB*] 20 mg PO QPM 11/16/17 01/19/18 History Estradiol TAB(NF) 1 tab PO QPM 01/06/18 01/19/18 History Ibuprofen TAB* 600 mg PO Q8HR PRN 01/06/18 01/19/18 History Results/Investigations Lab Results: 01/20/18 01/20/18 05:21 05:22 Hgb 13.6 Hct 40 Plt Count 157 MPV 9 Sodium 136 Potassium 4.0 Chloride 107 Carbon Dioxide 25 Anion Gap 4 BUN 14 Creatinine 0.76 Est GFR ( Amer) 102.0 Est GFR (Non-Af Amer) 79.3 BUN/Creatinine Ratio 18.4 Glucose 123 H Calcium 8.6 Vitals Vital Signs: Vital Signs 01/19/18 01/19/18 01/19/18 10:27 10:30 10:35 Temperature 97.2 F Pulse Rate 83 82 80 Respiratory 20 20 22 Rate Blood Pressure 111/75 109/68 110/67 (mmHg) O2 Sat by Pulse 95 95 96 Oximetry 01/19/18 01/19/18 01/19/18 10:40 10:45 11:00 Temperature Pulse Rate 77 76 75 Respiratory 22 22 22 Rate Blood Pressure 110/70 116/73 (mmHg) O2 Sat by Pulse 95 95 94 Oximetry 01/19/18 01/19/18 01/19/18 11:15 11:30 12:11 Temperature 98.6 F Pulse Rate 69 67 Respiratory 16 16 16 Rate Blood Pressure 110/68 104/77 (mmHg) O2 Sat by Pulse 96 97 Oximetry 01/19/18 01/19/18 01/19/18 12:15 12:57 14:00 Temperature 98.3 F 98.4 F 98.4 F Pulse Rate 78 79 92 Respiratory 16 17 17 Rate Blood Pressure 119/82 113/72 121/83 (mmHg) O2 Sat by Pulse 95 98 95 Oximetry 01/19/18 01/19/18 01/19/18 14:23 14:38 14:44 Temperature Pulse Rate Respiratory 18 16 Rate Blood Pressure (mmHg) O2 Sat by Pulse 95 Oximetry 01/19/18 01/19/18 01/19/18 15:34 16:00 16:55 Temperature 99.3 F Pulse Rate 74 Respiratory 16 16 Rate Blood Pressure 116/77 (mmHg) O2 Sat by Pulse 96 96 Oximetry 01/19/18 01/19/18 01/19/18 17:54 18:09 19:43 Temperature 98.4 F 97.6 F Pulse Rate 93 85 Respiratory 16 18 Rate Blood Pressure 112/93 106/76 (mmHg) O2 Sat by Pulse 96 97 97 Oximetry 01/19/18 01/19/18 01/19/18 21:20 21:40 23:41 Temperature 98.2 F Pulse Rate 79 Respiratory 20 18 16 Rate Blood Pressure 99/65 (mmHg) O2 Sat by Pulse 97 Oximetry 01/19/18 01/20/18 01/20/18 23:48 03:54 04:03 Temperature 98.1 F Pulse Rate 62 Respiratory 16 16 18 Rate Blood Pressure 107/64 (mmHg) O2 Sat by Pulse 93 Oximetry 01/20/18 07:39 Temperature Pulse Rate Respiratory 18 Rate Blood Pressure (mmHg) O2 Sat by Pulse Oximetry Orders: Orders Category Date Time Status Camp Advisor Consult Routine Cons 01/19/18 12:00 Ordered Regular Unrestricted Diet Dietary 01/19/18 Lunch Active
[2018-01-20 08:12] VITALS: BP 106/66
[2018-01-20] MEDS: clonazePAM TAB(*) 1 MG PO SCH (08:34)
--- NOTE | 2018-01-20 11:16 | PN ---
Progress Note - Progress Note Date of Service: 01/20/18 Note: Patient seen at bedside. She feels well and is ready for discharge home. Pain is rated 9/10 after PT and while taking down dressing to remove drain. She has no fever, chills, CP, SOB or numbness. Drain removed with tip intact and no complications, patient tolerated procedure well. She was seen by Dr Hernandez this morning and will be discharged home this afternoon.
[2018-01-20] MEDS ORDERED: Enoxaparin(*) 40 MG/0.4 ML SYR SUBCUT SCH (12:00)
[2018-01-20] MEDS ORDERED: ESTRADIOL 0.5 MG PO SCH (18:00)
[2018-01-20] MEDS ORDERED: Nicotine Patch Removal NOTE PATCH OFF SCH (21:00)
--- NOTE | 2018-01-21 13:47 | DS ---
DISCHARGE SUMMARY: DATE OF ADMISSION: 01/19/18 DATE OF DISCHARGE: 01/20/18 DATE OF OPERATION: 01/19/18 PROVIDER: Marcella Hernandez MD * (DICTATED BY YOHAN MARTINS) WHEELCHAIR RENTAL CLERK: YOHAN Sykes PRE-OP DIAGNOSIS: Right shoulder glenohumeral arthritis. OPERATIVE PROCEDURE: Right total shoulder arthroplasty. HISTORY: Maia Kendrick is a 52-year-old female with advanced glenohumeral arthritis who underwent a previous arthroscopic debridement, who had persistent pain and symptoms attributed to her arthritis. She elected to undergo a right total shoulder arthroplasty on 01/19/18. HOSPITAL COURSE: The patient was admitted to [facility]. She underwent a right total shoulder arthroplasty without complications. She recovered briefly in the PACU and then was transferred to the short-stay surgical unit again in stable condition. She was seen postop day #1. Her sling was in place. Dressing and drain were in place. Drain was removed today without complication, tolerated well. Sensation intact to light touch. The patient was able to flex, extend, abduct, and adduct all 5 digits on the right side. The sensation was intact distally. Radial pulse 2+. Capillary refill less than 2 seconds. Labs: Hemoglobin 13.6, hematocrit 40. Vitals: Temperature 98.5, pulse 69, respiratory rate 16, oxygen saturation 94, and blood pressure 106/66. MEDICATIONS: 1. Imitrex 100 mg p.o. daily p.r.n. 2. Cyclobenzaprine 10 mg p.o. t.i.d. p.r.n. 3. Clonazepam 1 mg p.o. t.i.d. 4. Citalopram 20 mg p.o. q.p.m. 5. Estradiol 1 tab p.o. q.p.m. 6. Acetaminophen 650 mg p.o. q.4 hours p.r.n. 7. Docusate 100 mg p.o. b.i.d. p.r.n. 8. Oxycodone/acetaminophen 5/325 mg 1 tab p.o. q.4 hours p.r.n., max daily dose of 8, may take 1 to 2 tablets as needed. DISCHARGE PLAN: Sling at all times except hygiene. Nonweightbearing right upper extremity. No active range of motion. Continue elbow, wrist, and hand pendulum as shown by PTAlvaro Lara to shower after 01/22/18. No bathing, swimming, or submerging the wound. Please call the orthopedic office for increased drainage, redness, increased pain or fever or go to the emergency room with shortness of breath or chest pain. Pain control with Percocet 5/325 one to two tabs by mouth every 4 to 6 hours as needed for pain, max of 8 per day. Follow up in the office within 2 weeks. YOHAN MARTINS [id number]/[facility] #: [id number] [place]
== END 2018-01-20 12:00 | disposition home or self-care (01) | DRG 315 ==
LOC: AA 05:52 → SSU 12:01
PROVIDERS: ADMIT Orthopaedic Surgery; ATTEND Orthopaedic Surgery
PROC: 0RRJ0JZ Replacement of Right Shoulder Joint with Synthetic Substitute, Open Approach (ICD-10-PCS; principal; 2018-01-19 07:30)
DX: M19.011 Primary osteoarthritis, right shoulder (principal); M32.9 Systemic lupus erythematosus, unspecified; I10 Essential (primary) hypertension; J44.9 Chronic obstructive pulmonary disease, unspecified; E78.00 Pure hypercholesterolemia, unspecified; F41.9 Anxiety disorder, unspecified; F32.9 Major depressive disorder, single episode, unspecified; M79.7 Fibromyalgia; G40.909 Epilepsy, unspecified, not intractable, without status epilepticus; G47.33 Obstructive sleep apnea (adult) (pediatric); N63.10 Unspecified lump in the right breast, unspecified quadrant; F17.210 Nicotine dependence, cigarettes, uncomplicated; G43.909 Migraine, unspecified, not intractable, without status migrainosus; Z86.19 Personal history of other infectious and parasitic diseases; Z88.1 Allergy status to other antibiotic agents; Z88.8 Allergy status to other drugs, medicaments and biological substances; Z91.040 Latex allergy status; Z80.9 Family history of malignant neoplasm, unspecified; Z82.61 Family history of arthritis; Z72.89 Other problems related to lifestyle
CPT/HCPCS: 36415; 80048; 85014; 85018; 85049; 88304; 88311; 94760; A9270-GY; G8987-GO-CI; G8988-GO-CI; G8989-GO-CI; J1100; J2250; J2405; J2704; J2795; J3010

== ENCOUNTER 2018-03-17 06:32 | Observation (INO) | payer MEDICAID ==
--- NOTE | 2018-03-07 19:42 | HP ---
CC: Robert Felix, KARI, [facility] * ADMISSION HISTORY AND PHYSICAL: DATE OF ADMISSION: 03/17/18 ATTENDING SURGEON: Dr. Alexander Rincon.* (DICTATED BY YOHAN LEROY) CHIEF COMPLAINT: Right breast cancer. HISTORY OF PRESENT ILLNESS: This is a 52-year-old female, who has undergone multiple past breast surgeries (by her history 6 procedures on the right and 3 procedures on the left), who approximately 2 months ago noted a lump in the right breast on self-exam. A mammogram and ultrasound were performed on . The mammogram showing a spiculated mass in the upper outer quadrant of the right breast measuring up to 1.6 cm and suspicious for carcinoma. It was located 9 cm deep to the nipple. Ultrasound confirmed a solid lesion in the upper outer quadrant, 10 o'clock position, 6 cm deep to the nipple measuring 1.4 x 1.4 x 1.0 cm. The patient has no known family history of breast or ovarian cancer. She has used estradiol on an intermittent basis. It was advised today to stop that. She has not yet had Medical or Radiation Oncology consult. She was seen in the office by Dr. Rincon on 02/25/18, at which time, a palpable mass was noted and fine needle aspiration was performed. Pathology showed invasive ductal carcinoma which was ER positive, DC negative, and HER-2/ anastasia indeterminate, but negative by FISH. Dr. Rincon discussed with the patient the indications for surgery, the risks, benefits, and alternatives. She would like to proceed with right mastectomy with sentinel lymph node biopsy and prophylactic (simple) left mastectomy. PAST MEDICAL HISTORY: Systemic lupus erythematosus; fibromyalgia; chronic pain ; recent right shoulder arthroplasty (01/19/18) with Dr. Hernandez (she has not yet initiated physical therapy because of social problems - see below). She was treated for hypertension, hypercholesterolemia, and obstructive sleep apnea , but states that these all improved or resolved with weight loss. She has a history of migraine headaches. PAST SURGICAL HISTORY: Previous surgeries include total right shoulder arthroplasty as noted above, multiple prior right shoulder procedures including arthroscopies, cervical disk surgery, tonsillectomy remotely, laparoscopic cholecystectomy, ALEX with BSO for benign disease. She has also had laryngeal procedures done for what sounds like dysplasia, though I do not have those specific records. She has followup scheduled with Dr. Reynolds. CURRENT MEDICATIONS: 1. Ibuprofen 600 mg 3 to 4 times per day. 2. Celexa 40 mg once daily. 3. Estradiol 1 mg once daily (uses intermittently; instructed to stop). 4. Cyclobenzaprine 10 mg p.r.n. (uses less than once weekly). 5. Sumatriptan 100 mg repeat x1 p.r.n. for migraine headaches. 6. Zolpidem 5 mg q.h.s. p.r.n. insomnia (the patient has prescription but has not used yet). 7. Clonazepam 1 mg p.r.n. anxiety (uses 1 or 2 times per day though has not had any in the last 1 to 2 weeks). She previously was taking Percocet 5/325 or oxycodone 5 mg related to her shoulder pain. She states that she has not had any oxycodone in the past 2 weeks. DRUG ALLERGIES: KEFLEX and NAPROXEN, both cause GI side effects; LATEX ( localized rash). FAMILY HISTORY: No known family history of anesthesia problems, bleeding or clotting disorders. SOCIAL HISTORY: The patient lives currently with her 16-year-old daughter. She had a daughter who just shortly after her shoulder surgery. I believe that was in the [place]. The patient is a smoker, 1 pack per day for 40 plus years and is encouraged to quit. She drinks alcohol rarely and has used marijuana intermittently. REVIEW OF SYSTEMS: General: No recent constitutional symptoms or acute illnesses other than described in the HPI. Eyes: No recent changes noted. Ears, Nose, Throat: No problems reported. The patient is scheduled to see Dr. Reynolds for followup on her larynx. Cardiovascular: Prior treatment for hypertension and she is hypertensive today, though she is also fairly anxious today. No history of TN or angina. Respiratory: No history of asthma, COPD, or chronic cough. She is an active smoker. GI: She is diagnosed with GERD some time ago by EGD, but has not had any symptoms. Colonoscopy last done at age 48 was recommended 3 to 5 years followup after removal of benign polyps. No additional GI problems noted. : No problems reported. INDUSTRIAL HYGIENE MANAGER: I did not inquire. See above for breast history. Musculoskeletal: History of fibromyalgia and lupus; chronic right shoulder pain, status post arthroplasty. Neuro/Psych: Recent loss of her daughter with consequent increase in her anxiety and insomnia. PHYSICAL EXAMINATION GENERAL: Well-nourished, somewhat obese female, in mild distress, often teary during her interview. VITAL SIGNS: Height 5 feet 1 inch, weight 158 pounds, temperature 98.5, blood pressure 180/100, pulse 66, respirations 18. HEENT: Pupils equal, round, and reactive. EOMs intact. No conjunctival pallor. Oropharynx: Some missing teeth. Remaining teeth in [id number] repair. No intraoral lesions. NECK: No cervical or supraclavicular lymphadenopathy. No palpable axillary adenopathy bilaterally. BREASTS: Complete exam not performed (see per Dr. Rincon's exam). The patient did note the right upper quadrant breast mass as well as an additional mass that she noted at home last evening. This is in the tail of the breast where there is an area of thickening that could be related to her recent biopsy, i.e. , lymph node within the tail of the breast. She will bring that to Dr. Rincon' s attention at the time of her surgery. LUNGS: Clear to auscultation. No rales or wheezes. HEART: Regular rate and rhythm. No murmur noted. ABDOMEN: Soft, nontender to palpation. No palpable masses or organomegaly. GENITALIA: Not done. RECTAL: Not done. BACK: No spinous process or CVA tenderness. EXTREMITIES: No edema. NEUROLOGICAL: Grossly intact though the patient is somewhat anxious and upset. SKIN: Warm and dry. No suspicious rashes or lesions noted. IMPRESSION: Right breast cancer and desire for left prophylactic mastectomy. PLAN: Right mastectomy with sentinel lymph node biopsy; left simple mastectomy. YOHAN LEROY [id number]/[facility] #: [id number] [place]
[~2018-03-17 06:32] MED LIST changes: +Famotidine TAB* 20 MG PO ONE
[2018-03-17] MEDS ORDERED: Heparin VIAL(*) 5000 UNITS/ML VIAL (FIVE THOUSAND) ONE ×2 (07:16)
[2018-03-17] MEDS ORDERED: Lidocaine 2.5%/Prilocain 2.5%* 5 GM TUBE ONE ×2 (07:17)
[2018-03-17] MEDS ORDERED: ceFAZolin 2 GM PREMIX (*) 2 GM/50 ML BAG IVPB ONE ×2 (07:17)
[2018-03-17] MEDS ORDERED: Famotidine TAB* 20 MG ONE ×2 (07:17)
[2018-03-17] MEDS ORDERED: fentaNYL* 50 MCG/ML 2 ML VIAL (100 MCG VIAL) ONE ×6 (11:40→13:46)
[2018-03-17] MEDS ORDERED: Midazolam* 1 MG/ML 5 ML VIAL (5 MG) ONE ×2 (11:41)
[2018-03-17] MEDS ORDERED: Rocuronium* 10 MG/ML VIAL ONE ×2 (13:04)
[2018-03-17] MEDS ORDERED: Propofol* 10 MG/ML 20 ML BTL IV PUSH ONE ×4 (13:48→14:23)
[2018-03-17] MEDS ORDERED: Succinylcholine* 20 MG/ML 10 ML VIAL ONE ×2 (13:48)
[2018-03-17] MEDS ORDERED: Glycopyrrolate IV* 0.2 MG/ML 1 ML VIAL ONE ×2 (13:48)
[2018-03-17] MEDS ORDERED: Lidocaine 2% PF * 5 ML VIAL ONE ×2 (13:48)
[2018-03-17] MEDS ORDERED: DiMENhydriNATE IV* 50 MG/ML VIAL ONE ×2 (13:48)
[2018-03-17] MEDS ORDERED: Dexamethasone IV* 4 MG/ML 1 ML (4 MG) ONE ×2 (13:48)
[2018-03-17] MEDS ORDERED: Ketorolac INJ* 30 MG/ML 1 ML VIAL ONE (13:48)
--- NOTE | 2018-03-17 14:07 | RAD ---
Indication: Right breast cancer. [place] node localization was performed after intradermal injection of 0.32 mCi of sulfur colloid technetium 99m in the upper outer quadrant surrounding the areola. The sentinel node was localized. The site was marked with a marker. IMPRESSION: Successful localization of the sentinel node.
[2018-03-17] MEDS ORDERED: Naloxone* 0.4 MG/ML 1 ML VIAL IV PRN (14:28)
[2018-03-17] MEDS ORDERED: DiMENhydriNATE IV* 50 MG/ML VIAL IV PUSH PRN (14:28)
[2018-03-17] MEDS ORDERED: oxyCODONE TAB* 5 MG TAB PO PRN (14:28)
[2018-03-17] MEDS ORDERED: HYDROmorphone INJ* 1 MG/ML CARPUJECT SYRINGE ONE ×2 (14:39)
[2018-03-17] MEDS ORDERED: oxyCODONE/Acetamin 5/325 MG* TAB PO ONE (15:23)
[2018-03-17] MEDS ORDERED: Ondansetron INJ* 2 MG/ML SYRINGE (from 40/20 VIAL) IV PRN (15:23)
[2018-03-17] MEDS ORDERED: HYDROmorphone INJ* 2 MG/ML CARPUJECT SYRINGE IV PRN (15:23)
[2018-03-17] MEDS ORDERED: Acetaminophen TAB* 325 MG PO PRN (15:23)
[2018-03-17] MEDS ORDERED: Docusate CAP* 100 MG PO PRN (15:23)
[2018-03-17] MEDS ORDERED: Levalbuterol 0.63MG/3ML NEB* UNIT OF USE INH ONE ×3 (15:29→15:30)
[2018-03-17] MEDS ORDERED: Ibuprofen TAB* 600 MG PO ONE (16:00)
[2018-03-17] MEDS: HYDROmorphone INJ* 1 MG/ML CARPUJECT SYRINGE IV PRN ×2 (16:07→16:27)
[2018-03-17] MEDS ORDERED: HYDROmorphone INJ* 2 MG/ML CARPUJECT SYRINGE ONE ×2 (16:07)
[2018-03-17] MEDS ORDERED: Citalopram TAB* 40 MG PO SCH (18:00)
[2018-03-17] MEDS: Ibuprofen TAB* 600 MG PO SCH ×2 (19:40→23:02)
[2018-03-17] MEDS: Heparin VIAL(*) 5000 UNITS/ML VIAL (FIVE THOUSAND) SUBCUT SCH (21:44)
[2018-03-17] MEDS: oxyCODONE/Acetamin 5/325 MG* TAB PO PRN (21:55)
[2018-03-17] MEDS ORDERED: Heparin VIAL(*) 5000 UNITS/ML VIAL (FIVE THOUSAND) SUBCUT ONE (22:00)
[2018-03-18] MEDS: oxyCODONE/Acetamin 5/325 MG* TAB PO PRN ×2 (02:58→16:23)
--- NOTE | 2018-03-18 06:23 | OP ---
CC: IGNACIO Taylor; [facility] * DATE OF OPERATION: 03/17/18 - ROOM #331 DATE OF : 61 SURGEON: Alexander Rincon MD PREDATORY HUNTER: Bonny Omer NP ANESTHESIOLOGIST: Marina Serrano MD ANESTHESIA: General anesthetic. PRE-OP DIAGNOSIS: Right breast cancer. POST-OP DIAGNOSIS: Right breast cancer. OPERATIVE PROCEDURE: Right mastectomy with sentinel node biopsy and left prophylactic mastectomy. DESCRIPTION OF PROCEDURE: The patient was supine on the operating room table. After adequate general anesthetic, compression stockings, Janay Hugger warmer, and intravenous antibiotics, the entire chest and axillary regions were prepped with antiseptic and draped in a sterile fashion. Mastectomy site incisions were drawn out and made symmetrical. The right side was addressed first. An elliptical incision was created and flaps created in the usual fashion using electrocautery. The breast was removed and marked with the suture lateral and sent in formalin for pathologic evaluation. [place] node scanning was carried out and 1 sentinel node of count over 6000 was obtained. This was sent labeled sentinel node #1. The basin count was down to about 8 or 10 thereafter. Hemostasis was obtained using electrocautery and then sutures were placed, were appropriate for larger vessels. A Edgar-Schafer drain was placed through an inferior stab wound and sutured to the skin using 3-0 Prolene. The incision was closed with 3-0 and 4-0 Vicryl followed by Steri-Strips on the left side. Identical procedure was carried out for the mastectomy. No axillary dissection or lymph nodes were taken. Specimen was again marked lateral with the suture and then placed in formalin for pathologic evaluation. Closure accomplished in identical fashion, identical drain. Bulky gauze dressings were placed. She tolerated the procedure well, was awakened, and brought to Recovery in good condition. No complications. Drains were bilateral Edgar-Schafer. Sponge and instrument counts were correct. Estimated blood loss 500 mL. [id number]/[facility] #: [id number] [facility]
[2018-03-18] MEDS: Heparin VIAL(*) 5000 UNITS/ML VIAL (FIVE THOUSAND) SUBCUT SCH (06:27)
[2018-03-18] MEDS: Ibuprofen TAB* 600 MG PO SCH ×2 (08:30→16:23)
[2018-03-18] MEDS ORDERED: ceFAZolin 2 GM PREMIX (*) 2 GM/50 ML BAG IVPB ONE ×2 (08:30)
[2018-03-18 09:11] LABS: Hematocrit 31 % (35-47); Hemoglobin 10.4 g/dl (12.0-16.0); Mean Corpuscular HGB Conc 34 g/dl (31-36); Mean Corpuscular Hemoglobin 30 pg (27-31); Mean Corpuscular Volume 91 fL (80-97); Mean Platelet Volume 9.4 um3 (7.4-10.4); Platelet Count 175 10^3/ul (150-450); Red Blood Count 3.45 10^6/ul (4.0-5.4); Red Cell Distribution Width 13 % (10.5-15); White Blood Count 17.2 10^3/ul (3.5-10.8)
[2018-03-18] MEDS ORDERED: LORazepam INJ* 2 MG/ML 1 ML VIAL ONE ×2 (10:29)
[2018-03-18] MEDS ORDERED: fentaNYL* 50 MCG/ML 2 ML VIAL (100 MCG VIAL) IV PRN (12:07)
[2018-03-18] MEDS ORDERED: Naloxone* 0.4 MG/ML 1 ML VIAL IV PRN (12:07)
[2018-03-18] MEDS ORDERED: HYDROcodone/ACETAMIN 5-325 MG* 1 TAB PO PRN (12:07)
[2018-03-18] MEDS ORDERED: oxyCODONE/Acetamin 5/325 MG* TAB PO PRN (12:07)
[2018-03-18] MEDS ORDERED: Lidocaine 1% MPF wEPI 200,000* 30 ML SDV ONE (12:09)
[2018-03-18] MEDS ORDERED: Bupivacaine 0.25% SDV* 30 ML ONE (12:09)
[2018-03-18] MEDS ORDERED: Propofol* 10 MG/ML 20 ML BTL IV PUSH ONE ×2 (12:13)
[2018-03-18] MEDS ORDERED: Lidocaine 2% PF * 5 ML VIAL ONE ×2 (12:13)
[2018-03-18] MEDS ORDERED: fentaNYL* 50 MCG/ML 2 ML VIAL (100 MCG VIAL) ONE ×4 (12:13→12:53)
[2018-03-18] MEDS ORDERED: Midazolam* 1 MG/ML 5 ML VIAL (5 MG) ONE ×2 (12:13)
[2018-03-18] MEDS ORDERED: EPHEDrine (Pressors)* 50 MG/ML VIAL ONE ×2 (12:51)
[2018-03-18] MEDS ORDERED: Phenylephrine INJ* 10 MG/ML 1 ML VIAL (10 MG) ONE ×2 (13:11)
[2018-03-18 16:17] VITALS: BP 138/80
--- NOTE | 2018-03-19 12:37 | DS ---
CC: Dr. Alexander Rincon; Robert Felix NP; [facility]. * DISCHARGE SUMMARY: DATE OF ADMISSION: 03/17/18. DATE OF DISCHARGE: 03/18/18. PRINCIPAL ADMITTING DIAGNOSIS: Carcinoma of the right breast. OPERATIVE PROCEDURE ON THIS ADMISSION: Right mastectomy with sentinel node and left prophylactic mastectomy. COMPLICATIONS ON THIS ADMISSION: Hematoma of the left chest site requiring return to the OR. HOSPITAL COURSE: Patient is a 52-year-old female who came to the hospital and was taken to the operating room on 03/17/18 where she underwent right mastectomy and sentinel node biopsy along with left prophylactic mastectomy. She tolerated the procedure well and was recuperating and the following morning was found to have a large hematoma of the left chest site and was therefore taken back to the operating room for evacuation of hematoma. She had a nice recovery from that and was discharged home later the same day. She is discharged home with instructions and will follow up in the office in about 3 days. Pathology was pending. [id number]/[facility] #: [id number] [place]
--- NOTE | 2018-03-23 07:16 | OP ---
DATE OF OPERATION: 03/18/18 - ROOM #331 DATE OF : 61 SURGEON: Dr. Rincon. BEER COOLER: None. ANESTHESIOLOGIST: Dr. [place]. ANESTHESIA: General anesthetic. PRE-OP DIAGNOSIS: Hematoma, left chest. POST-OP DIAGNOSIS: Hematoma, left chest. OPERATIVE PROCEDURE: Evacuation of hematoma, left chest. DESCRIPTION OF PROCEDURE: The patient was supine on the operative table. After adequate general anesthetic, compression stockings, Jaany Hugger warmer and intravenous antibiotics, the left chest was prepped with antiseptic, draped in a sterile fashion. This was after the Steri-Strips were removed and the BARBARA drain had been removed. The previous incision was reopened. Large hematoma was identified. This exceeded 500 mL of blood clot and it was then irrigated out and a bleeder was noted along the inferior edge. This bleeder was suture ligated with Vicryl and the additional irrigation was carried out. No additional areas of bleeding could be identified. A Edgar Schafer drain was brought out through the inferior stab wound and sutured the skin with 3-0 Prolene and the closure was then accomplished using 3-0 and 5-0 Vicryl followed by Steri-Strips. She tolerated the procedure well, was brought to Recovery in good condition. No complications. Drain is Edgar Schafer. Sponge and instrument counts were correct. Estimated blood loss is may be 500 mL of blood clot. [id number]/[facility] #: [id number] [facility]
== END 2018-03-18 17:35 | disposition home or self-care (01) ==
LOC: SDS 06:32 → SSU 15:23
PROVIDERS: ADMIT Surgery; ATTEND Surgery
PROC: 0HBV0ZX Excision of Bilateral Breast, Open Approach, Diagnostic (ICD-10-PCS; 2018-03-17)
PROC: 0HBV0ZZ Excision of Bilateral Breast, Open Approach (ICD-10-PCS; principal; 2018-03-17 12:00)
DX: C50.911 Malignant neoplasm of unspecified site of right female breast (principal)
CPT/HCPCS: 36415; 78195; 85027; 88307; 88342; 96374; A9270-GY; A9541; G0378; J0330; J0690; J1100; J1170; J1240; J1644; J1885; J2001; J2060; J2250; J2704; J3010

== ENCOUNTER 2018-09-12 22:45 | Emergency (ER) | payer MEDICAID ==
[2018-09-12] MEDS ORDERED: Metoclopramide IV* 5 MG/ML 2 ML VIAL IV SLOW PU ONE (23:12)
[2018-09-12] MEDS ORDERED: HYDROmorphone INJ1* 1 MG/ML SYRINGE IV SLOW PU ONE (23:12)
--- NOTE | 2018-09-12 23:15 | ED ---
HPI Chest Pain - HPI Summary HPI Summary: Patient is a 53 y/o F w/ c/o chest pain and SOB. She states that two days ago she fell on a conical shaped "car piece". Patient had a double mastectomy in mid March of this year, states that the car piece struck her in the concave area of her chest. In the room, she states that chest pain is right sided. She notes that breathing and movement aggravate Sx. SOB is reported to be due to the fact that breathing aggravates pain. PMHx of asthma "when I'm in [facility]". Patient used to take amlodipine but took herself off of this medication. On triage, pain is rated 6/10 and it is noted that hot packs were used to treat Sx [employer]. Home medications and allergies are reviewed. - History of Current Complaint Chief Complaint: EDChestWallPain Time Seen by Provider: 09/12/18 22:56 Hx Obtained From: Patient Onset/Duration: Started Days Ago - two days ago, Still Present Timing: Constant Current Severity: Moderate - 6/10 Pain Intensity: 6 Pain Scale Used: 0-10 Numeric - 6/10 Chest Pain Location: Right Anterior Aggravating Factor(s): Movement, Other: - breathing Alleviating Factor(s): Nothing Associated Signs and Symptoms: Positive: Chest Pain, Shortness of Breath - Additional Pertinent History Primary Care Physician: LEONID - Allergy/Home Medications Allergies/Adverse Reactions: Allergies Allergy/AdvReac Type Severity Reaction Status Date / Time latex Allergy Intermediate Rash Verified 09/12/18 22:50 cephalexin AdvReac Severe GI Upset Verified 09/12/18 22:50 naproxen AdvReac Severe GI Upset Verified 09/12/18 22:50 PMH/Surg Hx/FS Hx/Imm Hx Endocrine/Hematology History: Denies: Hx Bone Marrow Disease, Hx Diabetes, Hx Sickle Cell Disease, Hx Anemia Cardiovascular History: Reports: Hx Hypercholesterolemia, Hx Hypertension Denies: Hx Pacemaker/ICD, Other Cardiovascular Problems/Disorders Respiratory History: Reports: Hx Asthma - Hx , NO Sx IN AWHILE BUT DOES HAVE MEDS AVAILABLE, Hx Chronic Obstructive Pulmonary Disease (COPD), Hx Sleep Apnea - History of, Lost 50 lbs, controlled 4 yrs per pt Denies: Other Respiratory Problems/Disorders GI History: Reports: Other GI Disorders - swollen liver on ultrasound History: Denies: Hx Renal Disease, Other Problems/Disorders Musculoskeletal History: Reports: Hx Arthritis - RA, Hx Back Problems, Other Musculoskeletal History - spasms and acute pain in low spine and right shoulder to spine swollen, man Sensory History: Reports: Hx Cataracts, Hx Contacts or Glasses - GLASSES Denies: Hx Hearing Aid Opthamlomology History: Reports: Hx Cataracts, Hx Contacts or Glasses - GLASSES Neurological History: Reports: Hx Headaches, Hx Migraine - none recent, Hx Nerve Disease - Fibromyalgia, Hx Seizures - history of, none recent, patient doesn't recall when last seizure was, Other Neuro Impairments/Disorders - tingling both sides wrist,elbow,fingers X 15 yrs Psychiatric History: Reports: Hx Anxiety, Hx Depression Denies: Hx Panic Disorder, Other Psychiatric Issues/Disorders - Cancer History Cancer Type, 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 3 breast surgeries on left side. , 6 breast surgeries on right side,. gallbladder. , total hysterectomy,. 2 neck scrapings to remove pre-cancerous cells,. 4 root canals , (throat-pre. cancerous). 11/23/16 RT SHOULDER [place] Hx Anesthesia Reactions: No Infectious Disease History: No Infectious Disease History: Reports: Hx Hepatitis - Hx OF, NONE IN PAST 10 YEARS Denies: History Other Infectious Disease, Traveled Outside the [place] in Last 30 Days - Family History Known Family History: Negative: Blood Disorder - Social History Alcohol Use: None Substance Use Type: Reports: None Smoking Status (MU): Heavy Every Day Tobacco Smoker Type: Cigarettes Amount Used/How Often: 1PPD SINCE AGE 5. 45 YRS Length of Time of Smoking/Using Tobacco: 47 YEARS Have You Smoked in the Last Year: Yes Review of Systems Positive: Chest Pain Positive: Shortness Of Breath All Other Systems Reviewed And Are Negative: Yes Physical Exam - Summary Physical Exam Summary: VITAL SIGNS: Reviewed. GENERAL: Patient is a well-developed and nourished female who is lying comfortable in the stretcher. Patient is not in any acute respiratory distress. HEAD AND FACE: No signs of trauma. No ecchymosis, hematomas or skull depressions. No sinus tenderness. EYES: PERRLA, EOMI x 2, No injected conjunctiva, no nystagmus. EARS: Hearing grossly intact. Ear canals and tympanic membranes are within normal limits. MOUTH: Oropharynx within normal limits. NECK: Supple, trachea is midline, no adenopathy, no JVD, no carotid bruit, no c- spine tenderness, neck with full ROM. CHEST: Bilateral mastectomy is noted; right chest wall tenderness. LUNGS: Clear to auscultation bilaterally. No wheezing or crackles. CVS: Regular rate and rhythm, S1 and S2 present, no murmurs or gallops appreciated. ABDOMEN: Soft, non-tender. No signs of distention. No rebound no guarding, and no masses palpated. Bowel sounds are normal. EXTREMITIES: FROM in all major joints, no edema, no cyanosis or clubbing. NEURO: Alert and oriented x 3. No acute neurological deficits. Speech is normal and follows commands. SKIN: Dry and warm Triage Information Reviewed: Yes Vital Signs On Initial Exam: Initial Vitals Temp Pulse Resp BP Pulse Ox 98.3 F 58 20 188/110 99 09/12/18 22:48 09/12/18 22:48 09/12/18 22:48 09/12/18 22:48 09/12/18 22:48 Vital Signs Reviewed: Yes Diagnostics - Vital Signs Vital Signs Temp Pulse Resp BP Pulse Ox 09/12/18 22:48 98.3 F 58 20 188/110 99 - Laboratory Result Diagrams: 09/12/18 23:38 09/12/18 23:38 Lab Statement: Any lab studies that have been ordered have been reviewed, and results considered in the medical decision making process. - CT CHEST CT CT Interpretation Completed By: Radiologist Summary of CT Findings: No acute CT pathology. This report was reviewed by ED physician. - EKG 2326 Cardiac Rate: NL - rate of 61 BPM EKG Rhythm: Sinus Rhythm Summary of EKG Findings: normal axis, normal intervals, no ischemic changes Re-Evaluation - Re-Evaluation First Eval Re-Evaluation Time: 01:53 Change: Improved Comment: Patient notes that she is feeling better. Discussed results of labs and tests, patient will be discharged to home and follow up with PCP in 1-2 days. Chest Pain Course/Dx - Course Course Of Treatment: Patient is a 53 y/o F w/ c/o chest pain and SOB. She states that two days ago she fell on a conical shaped "car piece". Patient had a double mastectomy in mid March of this year, states that the car piece struck her in the concave area of her chest. In the room, she states that chest pain is right sided. She notes that breathing and movement aggravate Sx. SOB is reported to be due to the fact that breathing aggravates pain. PMHx of asthma "when I'm in [facility]". Patient used to take amlodipine but took herself off of this medication. On physical exam, patient is noted to have Bilateral mastectomy and right chest wall tenderness. During ED course, patient received reglan 10 mg IV SLOW PUSH, Dilaudid 1 mg IV SLOW PUSH ONCE. Labs showed trop 0, AST 11, magnesium 1.8, calcium 8.4, glucose 105, chloride 114. EKG showed normal sinus rhythm with rate of 61 BPM, normal axis, normal intervals, no ischemic changes. Chest CT showed no acute CT pathology. 0153 - Patient notes that she is feeling better. Discussed results of labs and tests, patient will be discharged to home and follow up with PCP in 1-2 days. Dx of chest wall pain. - Diagnoses Provider Diagnoses: Chest wall pain Discharge - Sign-Out/Discharge Documenting (check all that apply): Patient Departure - discharge - Discharge Plan Condition: Stable Disposition: HOME Patient Education Materials: Chest Wall Pain (ED) Referrals: Sixto Winter MD [Primary Care Provider] - 2 Days Additional Instructions: RETURN TO THE EMERGENCY DEPARTMENT FOR CHANGING OR WORSENING SYMPTOMS. FOLLOW UP WITH PRIMARY CARE PHYSICIAN IN 1-2 DAYS. - Attestation Statements Document Initiated by Scribe: Yes Documenting Scribe: Audi Pascal Provider For Whom Giovana is Documenting (Include Credential): Jd Pedersen MD Scribe Attestation: Audi Whiting , scribed for Jd Pedersen MD on 09/13/18 at 0159.
[2018-09-12 23:50] LABS: ABS Basophils 0.1 10^3/ul (0-0.2); ABS Eosinophils 0.2 10^3/ul (0-0.6); ABS Lymphocytes 2.2 10^3/ul (1.0-4.8); ABS Monocytes 0.5 10^3/ul (0-0.8); ABS Neutrophils 3.2 10^3/ul (1.5-7.7); ABS Nucleated RBC 0 10^3/ul; Eosinophil % 3.4 % (0-6); Hematocrit 41 % (35-47); Hemoglobin 13.9 g/dl (12.0-16.0); Lymphocyte % 35.1 % (25-47); Mean Corpuscular HGB Conc 34 g/dl (31-36); Mean Corpuscular Hemoglobin 29 pg (27-31); Mean Corpuscular Volume 87 fL (80-97); Mean Platelet Volume 8.9 fL (7.4-10.4); Nucleated Red Blood Cells % 0; Platelet Count 151 10^3/ul (150-450); Red Blood Count 4.74 10^6/ul (4.00-5.40); Red Cell Distribution Width 16 % (10.5-15); White Blood Count 6.1 10^3/ul (3.5-10.8)
[2018-09-13 00:01] LABS: INR 0.93 (0.77-1.02)
[2018-09-13 00:04] LABS: EGFR Non-African American 72.4 (>60)
[2018-09-13] MEDS ORDERED: Iohexol 300* (CONTRAST) 10 ML SDV IV ONE (00:31)
[2018-09-13 02:58] VITALS: BP 121/74
== END 2018-09-13 02:57 | disposition home or self-care (01) ==
LOC: ED 22:45
DX: R07.89 Other chest pain (principal); R06.02 Shortness of breath; F17.210 Nicotine dependence, cigarettes, uncomplicated
CPT/HCPCS: 36415; 71260; 80053; 82550; 83735; 84484; 85025; 85610; 85730; 93005; 96374; 96375; 99283; J1170; J2765; Q9967

== ENCOUNTER 2018-09-19 10:08 | Emergency (ER) | payer MEDICAID ==
--- NOTE | 2018-09-19 10:26 | ED ---
HPI Chest Pain - HPI Summary HPI Summary: A 53 y/o female presents to the ED c/o CP since 09/12/18, when she also presented to the ED, received an EKG and a CT and was discharged and told to pursue warm compressions. She stated that the warm compressions did not help. The CP is located in the upper right area of her chest. She describes the CP as a stabbing pain. The pt claims that her CP worsens with deep breaths and coughs. She rates her pain as 7/10 but claims that she "is not here because of the pain". She also fell onto a car part on 09/14/2018. She believes that she has a lump near her chest and wants an US. The pt claims to have had a double mastectomy in March 2018. She also has a Hx of CVA and lupus. The pt admits to being a smoker. - History of Current Complaint Chief Complaint: EDChestWallPain Time Seen by Provider: 09/19/18 10:23 Hx Obtained From: Patient Onset/Duration: Started Days Ago, Still Present Timing: Constant Initial Severity: Moderate Current Severity: Moderate Pain Intensity: 7 Pain Scale Used: 0-10 Numeric Chest Pain Radiates: No Character: Sharp/Stabbing Aggravating Factor(s): Deep Breaths, Other: - Cough Associated Signs and Symptoms: Positive: Cough - Additional Pertinent History Primary Care Physician: LEONID - Allergy/Home Medications Allergies/Adverse Reactions: Allergies Allergy/AdvReac Type Severity Reaction Status Date / Time latex Allergy Intermediate Rash Verified 09/19/18 10:14 cephalexin AdvReac Severe GI Upset Verified 09/19/18 10:14 naproxen AdvReac Severe GI Upset Verified 09/19/18 10:14 PMH/Surg Hx/FS Hx/Imm Hx Endocrine/Hematology History: Denies: Hx Bone Marrow Disease, Hx Diabetes, Hx Sickle Cell Disease, Hx Anemia Cardiovascular History: Reports: Hx Hypercholesterolemia, Hx Hypertension Denies: Hx Pacemaker/ICD, Other Cardiovascular Problems/Disorders Respiratory History: Reports: Hx Asthma - Hx , NO Sx IN AWHILE BUT DOES HAVE MEDS AVAILABLE, Hx Chronic Obstructive Pulmonary Disease (COPD), Hx Sleep Apnea - History of, Lost 50 lbs, controlled 4 yrs per pt Denies: Other Respiratory Problems/Disorders GI History: Reports: Other GI Disorders - swollen liver on ultrasound History: Denies: Hx Renal Disease, Other Problems/Disorders Musculoskeletal History: Reports: Hx Arthritis - RA, Hx Back Problems, Other Musculoskeletal History - spasms and acute pain in low spine and right shoulder to spine swollen, man Sensory History: Reports: Hx Cataracts, Hx Contacts or Glasses - GLASSES Denies: Hx Hearing Aid Opthamlomology History: Reports: Hx Cataracts, Hx Contacts or Glasses - GLASSES Neurological History: Reports: Hx Headaches, Hx Migraine - none recent, Hx Nerve Disease - Fibromyalgia, Hx Seizures - history of, none recent, patient doesn't recall when last seizure was, Other Neuro Impairments/Disorders - tingling both sides wrist,elbow,fingers X 15 yrs Psychiatric History: Reports: Hx Anxiety, Hx Depression Denies: Hx Panic Disorder, Other Psychiatric Issues/Disorders - Cancer History Cancer Type, Location and Year: PRE CANCEROUS CELLS REMOVED Hx Chemotherapy: Yes Hx Radiation Therapy: No - Surgical History Surgery Procedure, Year, and Place: tonsils ,. 3 breast surgeries on left side. , 6 breast surgeries on right side,. gallbladder. , total hysterectomy,. 2 neck scrapings to remove pre-cancerous cells,. 4 root canals , (throat-pre. cancerous). 11/23/16 RT SHOULDER [place] Hx Anesthesia Reactions: No Infectious Disease History: No Infectious Disease History: Reports: Hx Hepatitis - Hx OF, NONE IN PAST 10 YEARS Denies: History Other Infectious Disease, Traveled Outside the [place] in Last 30 Days - Family History Known Family History: Negative: Blood Disorder - Social History Alcohol Use: None Substance Use Type: Reports: None Smoking Status (MU): Heavy Every Day Tobacco Smoker Type: Cigarettes Amount Used/How Often: 1PPD SINCE AGE 5. 47 YRS Length of Time of Smoking/Using Tobacco: 47 YEARS Have You Smoked in the Last Year: Yes Review of Systems Positive: Chest Pain Positive: Cough Positive: Other - Positive: lump near chest All Other Systems Reviewed And Are Negative: Yes Physical Exam - Summary Physical Exam Summary: Appearance: The patient is well-nourished in no acute distress and in no acute pain. Skin: The skin is warm and dry and skin color reflects adequate perfusion. No lump felt. HEENT: The head is normocephalic and atraumatic. The pupils are equal and reactive. The conjunctivae are clear and without drainage. Nares are patent and without drainage. Mouth reveals moist mucous membranes and the throat is without erythema and exudate. The external ears are intact. The ear canals are patent and without drainage. The tympanic membranes are intact. Neck: The neck is supple with full range of motion and non-tender. There are no carotid bruits. There is no neck vein distension. Respiratory: Tender anterior axillary line superiorly. Lungs are clear to auscultation and breath sounds are symmetrical and equal. Cardiovascular: Heart is regular rate and rhythm. There is no murmur or rub auscultated. There is no peripheral edema and pulses are symmetrical and equal. Abdomen: The abdomen is soft and non-tender. There are normal bowel sounds heard in all four quadrants and there is no organomegaly palpated. Musculoskeletal: There is no back tenderness noted. Extremities are non-tender with full range of motion. There is good capillary refill. There is no peripheral edema or calf tenderness elicited. Neurological: Patient is alert and oriented to person, place and time. The patient has symmetrical motor strength in all four extremities. Cranial nerves are grossly intact. Deep tendon reflexes are symmetrical and equal in all four extremities. Psychiatric: The patient has an appropriate affect and does not exhibit any anxiety or depression. Triage Information Reviewed: Yes Vital Signs On Initial Exam: Initial Vitals Temp Pulse Resp BP Pulse Ox 97.5 F 64 19 234/103 99 09/19/18 10:10 09/19/18 10:10 09/19/18 10:10 09/19/18 10:10 09/19/18 10:10 Vital Signs Reviewed: Yes Diagnostics - Vital Signs Vital Signs Temp Pulse Resp BP Pulse Ox 09/19/18 10:10 97.5 F 64 19 234/103 99 - Laboratory Lab Statement: Any lab studies that have been ordered have been reviewed, and results considered in the medical decision making process. - Radiology CXR Radiology Interpretation Completed By: Radiologist - no active cardiopulmonary disease. This report has been reviewed by the ED physician. - Ultrasound No standard instances Ultrasound Interpretation Completed By: Radiologist - Chest US: THERE IS NO SONOGRAPHIC ABNORMALITY TO CORRESPOND TO THE HISTORY OF PALPABLE ABNORMALITY. A NEGATIVE REPORT SHOULD NOT PRECLUDE OR DELAY THE EVALUATION OF A CLINICALLY SUSPICIOUS PALPABLE ABNORMALITY ED physician has reviewed this report. Chest Pain Course/Dx - Course Course Of Treatment: Ms. Kendrick came in concern for 2 reasons. She fell about a week ago and hurt the anterior lateral upper chest on the right and it is not improved hurts to take a deep breath or cough. She also has had a double mastectomy in the past and thinks that she feels a mass on the right. Her vitals were stable and she was nontoxic in appearance. Chest x-ray revealed no acute pathology and she had a CT scan when she originally had the accident revealing no fracture. Ultrasound of the mass was negative. I recommended she follow up with her oncologist. - Diagnoses Provider Diagnoses: Chest wall pain, Rib contusion Discharge - Sign-Out/Discharge Documenting (check all that apply): Patient Departure - DC - Discharge Plan Condition: Stable Disposition: HOME Patient Education Materials: Chest Wall Pain (ED), Rib Contusion (ED) Referrals: Sixto Winter MD [Primary Care Provider] - (2-3 days) Additional Instructions: Follow up with your oncologist. Return to the ED if you experience any worsening or new symptoms. - Billing Disposition and Condition Condition: STABLE Disposition: Home - Attestation Statements Document Initiated by Giovana: Yes Documenting Scribe: Naseem Escamilla Provider For Whom Giovana is Documenting (Include Credential): Reza Buck MD Scribe Attestation: I, Naseem Escamilla, scribed for Reza Buck MD on 09/19/18 at 1943. Scribe Documentation Reviewed: Yes Provider Attestation: The documentation as recorded by the Naseem charles accurately reflects the service I personally performed and the decisions made by me, Reza Buck MD
[2018-09-19 12:37] VITALS: BP 206/104
== END 2018-09-19 12:37 | disposition home or self-care (01) ==
LOC: ED 10:08
DX: R07.89 Other chest pain (principal); S20.211A Contusion of right front wall of thorax, initial encounter; W18.00XA Striking against unspecified object with subsequent fall, initial encounter; Y92.9 Unspecified place or not applicable; Z88.6 Allergy status to analgesic agent; Z88.1 Allergy status to other antibiotic agents; Z91.040 Latex allergy status; F17.210 Nicotine dependence, cigarettes, uncomplicated
CPT/HCPCS: 71046; 76604; 99282

== ENCOUNTER 2020-02-09 14:10 | Emergency (ER) | payer OTHER ==
--- NOTE | 2020-02-09 14:44 | ED ---
Back Pain - HPI Summary HPI Summary: 54-year-old female with a significant past medical history of thyroid carcinoma , breast cancer status post bilateral mastectomy presents to the emergency department today complaining of left-sided lateral rib pain 1 week. Patient describes his pain as a 6 out of 10 burning sensation. Patient reports no interesting incidents or trauma. There is no ecchymosis, erythema, edema to the area. There is increased pain with palpation the area. Patient has a significant past medical history shingles and varicella. Patient has taken Flexeril and oxycodone for pain relief. The patient is ambulatory and has full range of motion. Patient denies weight loss. Patient is otherwise well and denies fever, chest pain, abdominal pain, pain in urination, shortness of breath , nausea, vomiting, diarrhea. - History of Current Complaint Chief Complaint: EDAbdPain Stated Complaint: GENERAL PER PT Time Seen by Provider: 02/09/20 14:23 Hx Obtained From: Patient Onset/Duration: Gradual Onset Onset/Duration: Started Days Ago, Atraumatic Timing: Constant Severity Initially: Moderate Severity Currently: Moderate Pain Intensity: 7 Pain Scale Used: 0-10 Numeric Character: Burning Aggravating Symptom(s): Movement, Lifting, Bending Alleviating Symptom(s): Rest Associated Signs And Symptoms: Negative: Swelling, Redness, Bruising, Fever, Weakness - Allergies/Home Medications Allergies/Adverse Reactions: Allergies Allergy/AdvReac Type Severity Reaction Status Date / Time latex Allergy Intermediate Rash Verified 12/12/18 09:39 cephalexin AdvReac Severe GI Upset Verified 12/12/18 09:39 naproxen AdvReac Severe GI Upset Verified 12/12/18 09:39 Home Medications: Home Medications Cyclobenzaprine TAB* [Flexeril 10 MG TAB*] 10 mg PO TID PRN 08/31/12 [History Confirmed 02/09/20] Ibuprofen TAB* [Motrin TAB* 600 MG] 600 mg PO TID 03/10/18 [History Confirmed ] Amlodipine Besylate [Norvasc 10 mg tab] 10 mg PO DAILY 12/12/18 [History Confirmed 02/09/20] Aspirin EC TAB* [Ecotrin EC Low Dose 81 MG*] 81 mg PO DAILY 12/12/18 [History Confirmed 02/09/20] Citalopram TAB* [CeleXA TAB*] 40 mg PO DAILY 12/12/18 [History Confirmed ] Exemestane 25 mg PO DAILY 12/12/18 [History Confirmed 02/09/20] Hydrocodone/Acetaminophen [[place] 7.5-325 Tablet] 1 tab PO BID PRN MDD 2 tabs 02/24 [History Confirmed 02/09/20] hydrOXYzine HCL TAB* [Atarax TAB 50 MG *] 50 - 100 mg PO BEDTIME PRN 12/21/18 [ History Confirmed 02/09/20] Atorvastatin* [Lipitor*] 40 mg PO DAILY 02/09/20 [History Confirmed 02/09/20] Lisinopril TAB* [Prinivil TAB*] 20 mg PO DAILY 02/09/20 [History Confirmed 02/08] ValACYclovir (*) [Valtrex 1 GM(*)] 1 gm PO TID 02/09/20 [History Confirmed 02/08] ValACYclovir (*) [Valtrex 1 GM(*)] 1 gm PO TID #21 tab 02/09/20 [Rx] PMH/Surg Hx/FS Hx/Imm Hx Endocrine/Hematology History: Denies: Hx Bone Marrow Disease, Hx Diabetes, Hx Sickle Cell Disease, Hx Anemia Cardiovascular History: Reports: Hx Hypercholesterolemia, Hx Hypertension Denies: Hx Pacemaker/ICD, Other Cardiovascular Problems/Disorders Respiratory History: Reports: Hx Asthma - Hx , NO Sx IN AWHILE BUT DOES HAVE MEDS AVAILABLE, Hx Chronic Obstructive Pulmonary Disease (COPD), Hx Sleep Apnea - History of, Lost 50 lbs, controlled 4 yrs per pt Denies: Other Respiratory Problems/Disorders GI History: Reports: Other GI Disorders - swollen liver on ultrasound History: Denies: Hx Renal Disease, Other Problems/Disorders Musculoskeletal History: Reports: Hx Arthritis - RA, Hx Back Problems, Other Musculoskeletal History - spasms and acute pain in low spine and right shoulder to spine swollen, man Sensory History: Reports: Hx Cataracts, Hx Contacts or Glasses - GLASSES Denies: Hx Hearing Aid Opthamlomology History: Reports: Hx Cataracts, Hx Contacts or Glasses - GLASSES Neurological History: Reports: Hx Headaches, Hx Migraine - none recent, Hx Nerve Disease - Fibromyalgia, Hx Seizures - history of, none recent, patient doesn't recall when last seizure was, Other Neuro Impairments/Disorders - tingling both sides wrist,elbow,fingers X 15 yrs Psychiatric History: Reports: Hx Anxiety, Hx Depression Denies: Hx Panic Disorder, Other Psychiatric Issues/Disorders - Cancer History Cancer Type, Location and Year: PRE CANCEROUS CELLS REMOVED Hx Chemotherapy: Yes Hx Radiation Therapy: No - Surgical History Surgery Procedure, Year, and Place: tonsils 1969's,. 3 breast surgeries on left side AND 6 breast surgeries on right side, NOW BELEM MASTECTOMY. gallbladder. total hysterectomy,. 2 scrapings - throat to remove pre- cancerous cells,. 4 root canals,. 11/23/16 RT SHOULDER [place] - 3 total - LAST ONE SURG WAS - TOTAL SHOULDER REPLACEMENT. CSP - FUSION Hx Anesthesia Reactions: No Infectious Disease History: No Infectious Disease History: Reports: Hx Hepatitis - Hx OF, NONE IN PAST 10 YEARS Denies: History Other Infectious Disease, Traveled Outside the in Last 30 Days - Family History Known Family History: Negative: Blood Disorder - Social History Alcohol Use: None Substance Use Type: Reports: None Smoking Status (MU): Heavy Every Day Tobacco Smoker Type: Cigarettes Amount Used/How Often: 1PPD SINCE AGE 5. 45 YRS Length of Time of Smoking/Using Tobacco: 47 YEARS Have You Smoked in the Last Year: Yes Review of Systems Constitutional: Negative Eyes: Negative ENT: Negative Cardiovascular: Negative Respiratory: Negative Gastrointestinal: Negative Genitourinary: Negative Musculoskeletal: Negative Skin: Negative Neurological/Mental Status: Negative Psychological: Normal All Other Systems Reviewed And Are Negative: Yes Physical Exam - Summary Physical Exam Summary: Patient is in no acute distress. Patient has full range of motion. Patient complains of pain with palpation of the left lateral side. Pain is noted to be distributed mainly in the T5 to T6 dermatome. There is no obvious rash, erythema, edema, ecchymosis. No masses noted with palpation. Triage Information Reviewed: Yes Vital Signs On Initial Exam: Initial Vitals Temp Pulse Resp BP Pulse Ox 96.6 F 75 18 159/118 97 02/09/20 14:11 02/09/20 14:11 02/09/20 14:11 02/09/20 14:11 02/09/20 14:11 Vital Signs Reviewed: Yes Appearance: Positive: Well-Appearing, No Pain Distress, Well-Nourished Skin: Positive: Warm, Skin Color Reflects Adequate Perfusion Eyes: Positive: EOMI, HANSA ENT: Positive: Hearing grossly normal Respiratory/Lung Sounds: Positive: Clear to Auscultation, Breath Sounds Present Cardiovascular: Positive: RRR, S1, S2 Abdomen Description: Positive: Nontender, Soft Bowel Sounds: Positive: Present Musculoskeletal: Positive: Strength/ROM Intact Neurological: Positive: Sensory/Motor Intact, Alert, Oriented to Person Place, Time, Normal Gait, Facial Symmetry, Speech Normal Psychiatric: Positive: Normal, Affect/Mood Appropriate AVPU Assessment: Alert Procedures - Sedation Patient Received Moderate/Deep Sedation with Procedure: No Diagnostics - Vital Signs Vital Signs Temp Pulse Resp BP Pulse Ox 02/09/20 14:11 96.6 F 75 18 159/118 97 - Laboratory Lab Statement: Any lab studies that have been ordered have been reviewed, and results considered in the medical decision making process. Back Pain Course/Dx - Course Course Of Treatment: Patient was evaluated in the emergency department today for left sided pain. Vitals noted and stable. X-ray was done which showed no evidence of fracture or cardiopulmonary pathology. Physical exam and history is consistent with early prodrome of varicella-zoster. No evidence of trauma or mechanical back pain. Patient's primary care provider was contacted and agreed with starting the patient on antiviral medications and follow up with him in the office. Patient discharged with outpatient follow-up. - Diagnoses Differential Diagnosis/HQI/PQRI: Positive: Other - Mechanical back pain, varicella-zoster, paresthesia Provider Diagnoses: Side pain Discharge ED - Sign-Out/Discharge Documenting (check all that apply): Patient Departure - Discharge Plan Condition: Stable Disposition: HOME Prescriptions: ValACYclovir (*) [Valtrex 1 GM(*)] 1 gm PO TID #21 tab Patient Education Materials: Shingles (ED) Referrals: Robert Felix NP [Primary Care Provider] - 5 Days Additional Instructions: I am unsure what is causing your symptoms today however I believe it is due to shingles. Please keep an eye on the area of your pain for the outbreak of a rash. Until then please take valacyclovir 1000 mg 3 times daily for 7 days. Please follow-up with your primary care provider in 5 days for further evaluation and management. Please return to this emergency department immediately should you develop any new or worsening symptoms. - Billing Disposition and Condition Condition: STABLE Disposition: Home
--- OUTSIDE RECORDS SUMMARY | 2020-02-09 15:07 | XMS REPORT | Continuity of Care Document ---
:1965 External Reference #:[id number] Author Name Mireya Jeffrey MD (transmitted by agent of provider Naty Burnett) Address [address], [place] [address] Care Team Providers Name Role Phone Parmjit Mayberry MD - Interventional Care Team Information [employer] Software Development Engineer [phone] Pain Medicine Teodora Piña MD - Internal Care Team Information [employer] Software Development Engineer [phone] Medicine Problems Active Problems Provider Date Depressive disorder Robert Felix NP Onset: 09/12/2017 Localized, primary osteoarthritis of the shoulder Marcella Hernandez MD Onset: 03/2018 region Disorder of shoulder Marcella Hernandez MD Onset: 11/12/2017 History of hepatitis C Robert Felix NP Onset: 11/21/2017 Chondromalacia Marcella Hernandez MD Onset: 12/09/2017 Synovitis and tenosynovitis Marcella Hernandez MD Onset: 12/09/2017 Malignant neoplasm of female breast Robert Felix NP Onset: 03/14/2018 Absence seizure Robert Felix NP Onset: 05/26/2018 Rheumatoid arthritis Robert Felix NP Onset: 05/26/2018 Social History Type Date Description Comments Sex Unknown ETOH Use Rarely consumes alcohol Tobacco Use Start: Unknown Heavy tobacco smoker (more than 10 cigarettes/day) Smoking Status Reviewed: 01/04/20 Heavy tobacco smoker (more than 10 cigarettes/day) Exercise Type/Frequency Exercises regularly Allergies, Adverse Reactions, Alerts Active Allergies Reaction Severity Comments Date Keflex severe stomach cramp 09/08/2017 Naproxen severe stomach cramps 09/08/2017 Latex rash 10/18/2017 Medications Active Medications SIG Qnty Indications Ordering Date Provider Lisinopril 1 by mouth every 30tabs I10 Robert Felix NP 12/22/2019 20mg day Tablets Valacyclovir HCL take 1 tablet by 21tabs Robert Felix NP 06/11/2019 1gm mouth three times Tablets daily for 7 days Lipitor one tablet once 90tabs Robert Fleix NP 05/16/2019 40mg Tablets daily Clonazepam take 1 tablet by 60tabs Robert Felix NP 02/25/2019 1mg mouth twice a day Tablets if needed for anxiety maximum daily dose of 2 Hydrocodone-Acetamin take 1 tablet by 60tabs M79.7 Robert Felix NP 2018 ophen mouth twice a day 7.5-325mg if needed maximum Tablets daily dose of 2 Blood Pressure check bp twice 1units I10 Robert Felix NP 11/29/2018 Monitor Auto weekly at home Inflate [facility] Underpads Regular 2-3 pads daily as 90units R32 Robert Felix NP 10/18/2018 needed. [facility] Amlodipine Besylate take 1 tablet by 90tabs Robert Felix NP 10/18/2018 mouth daily 10mg Tablets Ibu take 1 tablet by 120tabs Robert Felix NP 07/12/2018 600mg Tablets mouth three times a day if needed with food Cane standard 1units I63.9 Robert Felix NP 04/11/2018 [facility] adjustable height cane. M79.1 Celexa 1 by mouth every day 90tabs G89.29 Robert Felix NP 02/14/2018 40mg Tablets Stool Softener 04/12/19 reports not 60caps Marcella Hernandez, 11/25/2017 100mg Capsules taking take 1 by MD mouth three times a day as needed for constipation Cyclobenzaprine HCL take 1 tablet by 270tabs Robert Felix NP 09/08/2017 10mg mouth three times a Tablets day as needed for spasm Aspirin chew and swallow 1 30units I63.9 Robert Felix NP 81mg Chewtabs tablet by mouth once daily Exemestane take 1 tablet by Unknown 25mg Tablets mouth once daily after meals History Medications Pill Box 7 Day use as directed 1units M06.9 Robert Felix NP 08/31/2019 - 7Day 09/13/2019 [facility] Hand Held Shower use daily 1units M06.9 Robert Felix NP 08/31/2019 - [place] 09/13/2019 [facility] M79.7 Medications Administered in Office Medication SIG Qnty Indications Ordering Provider Date Triamcinolone (Kenalog) Marcella Hernandez MD 11/12/2017 Injection Triamcinolone (Kenalog) Suze Polo PA-C 10/05/2017 Injection Immunizations Description No Information Available Vital Signs Date Vital Result Comment 01/04/2020 10:43am Height 61 inches 5'1" Weight 180.50 lb Heart Rate 72 /min BP Systolic 154 mmHg BP Diastolic 83 mmHg BP Systolic Recheck 144 mmHg BP Diastolic Recheck 84 mmHg Body Temperature 98.0 F O2 % BldC Oximetry 97 % BMI (Body Mass Index) 34.1 kg/m2 12/22/2019 8:32am Height 61 inches 5'1" Weight 171.00 lb Heart Rate 63 /min BP Systolic Sitting 159 mmHg BP Diastolic Sitting 100 mmHg BP Systolic Recheck 154 mmHg BP Diastolic Recheck 94 mmHg O2 % BldC Oximetry 99 % BMI (Body Mass Index) 32.3 kg/m2 Results Test Acquired Date Facility Test Result H/L Range Note Laboratory test 12/29/2019 [facility] TSH 0.87 Normal 0.34- 5.[address] (Thyroid mcIU/[place] [address] Stim [phone] Horm) Vitamin B12 350 pg/mL Normal 180-914 1 CBC Auto 12/29/2019 [facility] White Blood 6.0 10^3/uL Normal 3.5-10.[address] [place] [address] [phone] Red Blood Count 5.30 10^6/uL High 3.70-4.87 Hemoglobin 16.2 g/dL High 12.0-16.0 Hematocrit 47 % Normal 35-47 Mean Corpuscular Volume 89 fL Normal 80-97 Mean Corpuscular Hemoglobin 31 pg Normal 27-31 Mean Corpuscular HGB Conc 35 g/dL Normal 31-36 Red Cell Distribution Width 15 % Normal 10-15 Platelet Count 200 10^3/uL Normal 150-450 Mean Platelet Volume 8.7 fL Normal 7.4-10.4 Abs Neutrophils 4.0 10^3/uL Normal 1.5-7.7 Abs Lymphocytes 1.4 10^3/uL Normal 1.0-4.8 Abs Monocytes 0.4 10^3/uL Normal 0-0.8 Abs Eosinophils 0.1 10^3/uL Normal 0-0.6 Abs Basophils 0.0 10^3/uL Normal 0-0.2 Abs Nucleated RBC 0.0 10^3/uL Granulocyte % 67.0 % Lymphocyte % 24.0 % Monocyte % 7.0 % Eosinophil % 1.2 % Basophil % 0.8 % Nucleated Red Blood Cells % 0.0 Basic Metabolic 12/29/2019 [facility] Sodium 140 mmol/L Normal 135-[address] [place] [address] [phone] Potassium 3.5 mmol/L Normal 3.5-5.0 Chloride 110 mmol/L Normal 101-111 Co2 Carbon Dioxide 21 mmol/L Low 22-32 Anion Gap 9 mmol/L Normal 2-11 Glucose 114 mg/dL High 70-100 Blood Urea Nitrogen 13 mg/dL Normal 6-24 Creatinine 0.77 mg/dL Normal 0.51-0.95 BUN/Creatinine Ratio 16.9 Normal 8-20 Calcium 9.2 mg/dL Normal 8.6-10.3 Egfr Non- 77.5 >60 Egfr 93.8 >60 2 Drug 12/22/2019 [facility] Urine Presumptive Abnormal None [address] Hydrocodone Posi <[place] [address] Screen NOTE> Pain [phone] Clinic Urine Oxycodone Screen None Detected None Detect Urine Fentanyl Screen None Detected None Detect Urine Methadone Screen None Detected None Detect Urine Buprenorphine Screen None Detected None Detect Urine Amphetamine Screen None Detected None Detect Urine Barbiturates Screen None Detected None Detect Urine Benzodiazepine Screen None Detected None Detect Urine Cannabinoids Screen Presumptive Posi <SEE NOTE> Abnormal None Detect 4 Urine Cocaine Screen None Detected None Detect Urine Opiates Screen Presumptive Posi <SEE NOTE> Abnormal None Detect 5 Urine Phencyclidine Screen None Detected None Detect 6 Lipid Profile 09/06/2019 [facility] Triglycerides 147 mg/dL 7 (Trig/Chol/HDL) [address] [place], [place] [id number] [phone] Cholesterol 154 mg/dL 8 HDL Cholesterol 24.1 mg/dL 9 LDL Cholesterol 101 mg/dL 10 Liver Function 09/06/2019 [facility] Total Protein 6.5 g/dL Normal 6.4-8.[address] [place] [address] [phone] Albumin 4.0 g/dL Normal 3.2-5.2 Globulin 2.5 g/dL Normal 2-4 Albumin/Globulin Ratio 1.6 Normal 1-3 Total Bilirubin 0.30 mg/dL Normal 0.2-1.0 Direct Bilirubin 0.10 mg/dL Normal 0.03-0.18 Indirect Bilirubin 0.2 mg/dL Low 0.3-1.0 Alkaline Phosphatase 112 U/L High 34-104 Alt 16 U/L Normal 7-52 Ast 13 U/L Normal 13-39 1 Normal Range 180 to 914 Indeterminate Range 145 to 180 Deficient Range <145 2 Because ethnic data is not always readily [...] 15-29 5 Kidney failure <15 (or dialysis) 3 Presumptive Positive Presumptive positive results are unconfirmed. 4 Presumptive Positive Presumptive positive results are unconfirmed. 5 Presumptive Positive Presumptive positive results are unconfirmed. 6 The specimen was tested at the listed cutoffs: Drug Class Test level (ng/mL) Hydrocodone 300 Oxycodone 100 Fentanyl 1 Methadone 150 Buprenorphine 5 Amphetamines 500 Barbiturates 200 Benzodiazepines 200 Cocaine 150 Cannabinoids 50 Opiates 300 PCP 25 Specimen was received without chain of custody. Results should be used for medical purposes only. 7 Desirable: <150 Borderline High: 150-199 High: 200-499 Very High: >500 8 Desirable: <200 Borderline High: 200-239 High: >239 9 Low: <40 Desirable: 40-60 High: >60 10 Desirable: <100 Near Optimal: 100-129 Borderline High: 130-159 High: 160-189 Very High: >189 Procedures Date Code Description Status 12/22/2019 22914 EKG Tracing & Interpretation Completed 12/21/2018 [id number] Colonoscopy Completed 01/06/2018 [id number] Mammogram Completed 12/04/2013 [id number] Colonoscopy Completed Medical Devices Description No Information Available Encounters Type Date Location Provider Dx Diagnosis Office Visit 01/04/2020 [facility] Robert Felix NP I10 Essential (primary ) 10:40a Medicine - [facility] hypertension Office Visit 12/22/2019 [facility] Robert Felix NP Z01.818 Encounter for other 8:40a Medicine - [facility] preprocedural examination Z85.3 Personal history of malignant neoplasm of breast F17.210 Nicotine dependence, cigarettes, uncomplicated G89.29 Other chronic pain M79.7 Fibromyalgia I10 Essential (primary) hypertension F41.9 Anxiety disorder, unspecified I63.9 Cerebral infarction, unspecified G40.89 Other seizures M25.512 Pain in left shoulder 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, unspecified R20.2 Paresthesia of skin Office Visit 09/13/2019 9:20a [facility] Robert Felix, I10 Essential ( primary) Medicine - [facility] INDIRECT SALES REPRESENTATIVE hypertension F41.9 Anxiety disorder, unspecified F32.89 Other specified depressive episodes G43.009 Migraine w/o aura, not intractable, w/o status migrainosus Z86.73 Prsnl hx of TIA (TIA), and cereb infrc w/o resid deficits Z85.3 Personal history of malignant neoplasm of breast M79.7 Fibromyalgia E78.5 Hyperlipidemia, unspecified G89.29 Other chronic pain F17.210 Nicotine dependence, cigarettes, uncomplicated Assessments Date Code Description Provider 01/04/2020 I10 Essential (primary) hypertension Robertthuan Felix INDIRECT SALES REPRESENTATIVE 12/22/2019 I10 Essential (primary) hypertension Mireya Jeffrey MD 12/22/2019 Z01.818 Encounter for other preprocedural examination Robertthuan Felix NP 12/22/2019 Z85.3 Personal history of malignant neoplasm of breast Robertthuan Felix , INDIRECT SALES REPRESENTATIVE 12/22/2019 F17.210 Nicotine dependence, cigarettes, uncomplicated Robert Isidro , INDIRECT SALES REPRESENTATIVE 12/22/2019 G89.29 Other chronic pain Robertthuan Felix, INDIRECT SALES REPRESENTATIVE 12/22/2019 M79.7 Fibromyalgia Robertthuan Felix, INDIRECT SALES REPRESENTATIVE 12/22/2019 I10 Essential (primary) hypertension Robertthuan Felix, INDIRECT SALES REPRESENTATIVE 12/22/2019 F41.9 Anxiety disorder, unspecified Robertthuan Felix, INDIRECT SALES REPRESENTATIVE 12/22/2019 I63.9 Cerebral infarction, unspecified Robertthuan Felix, INDIRECT SALES REPRESENTATIVE 12/22/2019 G40.89 Other seizures Robertthuan Felix, INDIRECT SALES REPRESENTATIVE 12/22/2019 M25.512 Pain in left shoulder Robertthuan Felix, INDIRECT SALES REPRESENTATIVE 12/22/2019 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, unspecified Robertthuan Felix, INDIRECT SALES REPRESENTATIVE 12/22/2019 R20.2 Paresthesia of skin Robertthuan Felix, INDIRECT SALES REPRESENTATIVE 09/13/2019 I10 Essential (primary) hypertension Robertthuan Felix, INDIRECT SALES REPRESENTATIVE 09/13/2019 F41.9 Anxiety disorder, unspecified Robertthuan Felix, INDIRECT SALES REPRESENTATIVE 09/13/2019 F32.89 Other specified depressive episodes Robertthuan Felix, INDIRECT SALES REPRESENTATIVE 09/13/2019 G43.009 Migraine without aura, not intractable, without Robert Isidro, INDIRECT SALES REPRESENTATIVE status migrainosus 09/13/2019 Z86.73 Personal history of transient ischemic attack Robert Felix NP (TIA), and cerebral infarction without residual deficits 09/13/2019 Z85.3 Personal history of malignant neoplasm of breast Robertthuan Felix INDIRECT SALES REPRESENTATIVE 09/13/2019 M79.7 Fibromyalgia Robertthuan Felix, INDIRECT SALES REPRESENTATIVE 09/13/2019 E78.5 Hyperlipidemia, unspecified Robertthuan Felix, INDIRECT SALES REPRESENTATIVE 09/13/2019 G89.29 Other chronic pain Robert Felix NP 09/13/2019 F17.210 Nicotine dependence, cigarettes, uncomplicated Robert Felix NP Plan of Treatment Future Appointment(s):01/16/2020 10:30 am - Gabino Devine MD at [facility] at [id number]/04/2020 - Robert Felix NPI10 Essential (primary) hypertensionComments:Continue taking the Amlodipine and the Lisinopril. Functional Status Description No Information Available Mental Status Description No Information Available Referrals Refer to Dr Reason for Referral Status Appt Date Gabino Devine MD Sent 01/16/2020 [address] [place] [address] [phone] [facility] Sent [address] [facility] [id number] [facility] [id number] [phone]
--- OUTSIDE RECORDS SUMMARY | 2020-02-09 15:07 | XMS REPORT | Continuity of Care Document ---
:1965 External Reference #:[id number] Author Name Gabino Devine MD (transmitted by agent of provider Ada Munguia) Address [address] [place] [address] Care Team Providers Name Role Phone Parmjit Mayberry MD - Interventional Care Team Information Development Team Lead [phone] Pain Medicine Teodora Piña MD - Internal Care Team Information Development Team Lead Medicine Problems Active Problems Provider Date Depressive [...] (more than 10 cigarettes/day) Smoking Status Reviewed: 01/16/20 Heavy tobacco smoker (more than 10 cigarettes/day) [...] days Lipitor one tablet once 90tabs Robert Felix NP 05/16/2019 40mg Tablets daily Clonazepam take [...] 11/29/2018 Monitor Auto weekly at home Inflate [facility] Underpads Regular 2-3 pads daily as 90units R32 Robert Felix NP 10/18/2018 needed. [facility] Amlodipine Besylate take 1 tablet by 90tabs Robert Felix NP 10/18/2018 mouth daily 10mg Tablets Ibu take 1 tablet by 120tabs Robert Felix NP 07/12/2018 600mg Tablets mouth three times a day if needed with food Cane standard 1units I63.9 Robert Felix NP 04/11/2018 [facility] adjustable height cane. M79.1 Celexa 1 by [...] 25mg Tablets mouth once daily after meals Hydroxyzine HCL Take one tab tid Unknown 50mg Tablets History Medications Pill Box 7 Day use as directed 1units M06.9 Robert Felix NP 08/31/2019 - 7Day 09/13/2019 [facility] Hand Held Shower use daily 1units M06.9 Robert Felix NP 08/31/2019 - [place] 09/13/2019 [facility] M79.7 Medications Administered in Office Medication SIG Qnty Indications Ordering Provider Date Triamcinolone (Kenalog) Marcella Hernandez MD 11/12/2017 Injection Triamcinolone (Kenalog) Suze Polo PA-C 10/05/2017 Injection Immunizations Description No Information Available Vital Signs Date Vital Result Comment 01/16/2020 11:14am Height 60 inches 5'0" Weight 179.00 lb Heart Rate 71 /min BP Systolic 142 mmHg BP Diastolic 72 mmHg Respiratory Rate 18 /min Pain Level 7 O2 % BldC Oximetry 98 % BMI (Body Mass Index) 35.0 kg/m2 01/04/2020 10:43am Height 61 inches 5'1" Weight 180.50 lb Heart Rate 72 /min BP Systolic 154 mmHg BP Diastolic 83 mmHg BP Systolic Recheck 144 mmHg BP Diastolic Recheck 84 mmHg Body Temperature 98.0 F O2 % BldC Oximetry 97 % BMI (Body Mass Index) 34.1 kg/m2 Results Test Acquired Date Facility Test Result H/L Range Note Laboratory test 12/29/2019 [facility] TSH 0.87 Normal 0.34- 5.[address] (Thyroid mcIU/[place] [address] Stim [phone] Horm) Vitamin B12 350 pg/mL Normal 180-914 1 CBC Auto 12/29/2019 [facility] White Blood 6.0 10^3/uL Normal 3.5-10.[address] [place] [address] [phone] Red Blood Count 5.30 10^6/uL High 3.70-4.87 [...] Blood Cells % 0.0 Basic Metabolic 12/29/2019 [facility] Sodium 140 mmol/L Normal 135-145 Panel [address] [place] [address] [phone] Potassium 3.5 mmol/L Normal 3.5-5.0 Chloride 110 mmol/L Normal 101-111 Co2 Carbon Dioxide 21 mmol/L Low 22-32 Anion Gap 9 mmol/L Normal 2-11 Glucose 114 mg/dL High 70-100 Blood Urea Nitrogen 13 mg/dL Normal 6-24 Creatinine 0.77 mg/dL Normal 0.51-0.95 BUN/Creatinine Ratio 16.9 Normal 8-20 Calcium 9.2 mg/dL Normal 8.6-10.3 Egfr Non- 77.5 >60 Egfr 93.8 >60 2 Drug 12/22/2019 [facility] Urine Presumptive Abnormal None [address] Hydrocodone Posi <[place] [address] Screen NOTE> Pain [phone] Clinic Urine Oxycodone Screen None Detected None [...] Detected None Detect 6 Lipid Profile 09/06/2019 [facility] Triglycerides 147 mg/dL 7 (Trig/Chol/HDL) [address] [place] [address] [phone] Cholesterol 154 mg/dL 8 HDL Cholesterol 24.1 mg/dL 9 LDL Cholesterol 101 mg/dL 10 Liver Function 09/06/2019 [facility] Total Protein 6.5 g/dL Normal 6.4-8.[address] [place] [address] [phone] Albumin 4.0 g/dL Normal 3.2-5.2 Globulin 2.5 [...] High: >189 Procedures Date Code Description Status 01/16/2020 17200 Inj/Aspir Major JT Or Bursa W/ US Completed 12/22/2019 47585 EKG Tracing & Interpretation Completed 12/21/2018 [id number] Colonoscopy Completed 01/06/2018 [id number] Mammogram Completed 12/04/2013 [id number] Colonoscopy Completed Medical Devices Description No Information Available Encounters Type Date Location Provider Dx Diagnosis Office Visit 01/16/2020 [facility] Gabino Chao M19.012 Primary 10:30a at [facility] Devine MD osteoarthritis, left shoulder M75.52 Bursitis of left shoulder Office Visit 01/04/2020 10:40a [facility] Robert Felix, I10 Essential ( primary) Medicine - AIRLINE RADIO OPERATOR hypertension [facility] Office Visit 12/22/2019 8:40a [facility] Robert Felix, Z01.818 Encounter for other Medicine - AIRLINE RADIO OPERATOR preprocedural [facility] examination Z85.3 Personal history of malignant neoplasm of breast F17.210 Nicotine dependence, cigarettes, uncomplicated G89.29 Other chronic pain M79.7 Fibromyalgia I10 Essential (primary) hypertension F41.9 Anxiety disorder, unspecified I63.9 Cerebral infarction, unspecified G40.89 Other seizures M25.512 Pain in left shoulder 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, unspecified R20.2 Paresthesia of skin Office Visit 09/13/2019 9:20a [facility] Robert Isidro, I10 Essential ( primary) Medicine - [facility] AIRLINE RADIO OPERATOR hypertension F41.9 Anxiety disorder, unspecified F32.89 Other specified depressive episodes G43.009 Migraine w/o aura, not intractable, w/o status migrainosus Z86.73 Prsnl hx of TIA (TIA), and cereb infrc w/o resid deficits Z85.3 Personal history of malignant neoplasm of breast M79.7 Fibromyalgia E78.5 Hyperlipidemia, unspecified G89.29 Other chronic pain F17.210 Nicotine dependence, cigarettes, uncomplicated Assessments Date Code Description Provider 01/16/2020 M19.012 Primary osteoarthritis, left shoulder Gabino Devine MD 01/16/2020 M75.52 Bursitis of left shoulder Gabino Devine MD 01/04/2020 I10 Essential (primary) hypertension Robertthuan Felix, AIRLINE RADIO OPERATOR 12/22/2019 I10 Essential (primary) hypertension Mireya Jeffrey MD 12/22/2019 Z01.818 Encounter for other preprocedural Robert Isidro, AIRLINE RADIO OPERATOR examination 12/22/2019 Z85.3 Personal history of malignant neoplasm of Robert Isidro, AIRLINE RADIO OPERATOR breast 12/22/2019 F17.210 Nicotine dependence, cigarettes, Robert Isidro, AIRLINE RADIO OPERATOR uncomplicated 12/22/2019 G89.29 Other chronic pain Robert Isidro, AIRLINE RADIO OPERATOR 12/22/2019 M79.7 Fibromyalgia Robert Isidro, AIRLINE RADIO OPERATOR 12/22/2019 I10 Essential (primary) hypertension Robert Isidro, AIRLINE RADIO OPERATOR 12/22/2019 F41.9 Anxiety disorder, unspecified Robert Isidro, AIRLINE RADIO OPERATOR 12/22/2019 I63.9 Cerebral infarction, unspecified Robert Isidro, AIRLINE RADIO OPERATOR 12/22/2019 G40.89 Other seizures Robert Isidro, AIRLINE RADIO OPERATOR 12/22/2019 M25.512 Pain in left shoulder Robert Isidro, AIRLINE RADIO OPERATOR 12/22/2019 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, unspecified Robert Isidro, AIRLINE RADIO OPERATOR 12/22/2019 R20.2 Paresthesia of skin Robert Isidro, AIRLINE RADIO OPERATOR 09/13/2019 I10 Essential (primary) hypertension Robert Isidro, AIRLINE RADIO OPERATOR 09/13/2019 F41.9 Anxiety disorder, unspecified Robert Isidro, AIRLINE RADIO OPERATOR 09/13/2019 F32.89 Other specified depressive episodes Robert Isidro, AIRLINE RADIO OPERATOR 09/13/2019 G43.009 Migraine without aura, not intractable, Robert Felix AIRLINE RADIO OPERATOR without status migrainosus 09/13/2019 Z86.73 Personal history of transient ischemic Robert Felix NP attack (TIA), and cerebral infarction without residual deficits 09/13/2019 Z85.3 Personal history of malignant neoplasm of Robert Felix AIRLINE RADIO OPERATOR breast 09/13/2019 M79.7 Fibromyalgia Robert Felix NP 09/13/2019 E78.5 Hyperlipidemia, unspecified Robert Felix NP 09/13/2019 G89.29 Other chronic pain Robert Felix NP 09/13/2019 F17.210 Nicotine dependence, cigarettes, Robert Felix NP uncomplicated Plan of Treatment 01/16/2020 - Gabino Devine, MDM19.012 Primary osteoarthritis, left shoulderNew Xrays:Inj/Aspir Major JT Or Bursa W/ US, Ordered: 01/16/20Follow up: Follow up:M75.52 Bursitis of left shoulder Functional Status Description No Information Available Mental Status Description No Information Available Referrals Refer to Reason for Referral Status Appt Date Gabino Devine MD Sent 01/16/2020 [address] [place] [address] [phone] [facility] Sent [address] [facility] [address] [address] [facility] [address] [phone]
--- OUTSIDE RECORDS SUMMARY | 2020-02-09 15:07 | XMS REPORT | Continuity of Care Document ---
:1965 External Reference #:[id number] Author Name Robert Felix NP (transmitted by agent of provider Judy Moore) Address [address] [facility], [place] [address] Care Team Providers Name Role Phone Parmjit Mayberry MD - Interventional Care Team Information Chopper Gun Operator [phone] Pain Medicine Teodora Piña MD - Internal Care Team Information Chopper Gun Operator [phone] Medicine Problems Active Problems Provider Date Depressive [...] (more than 10 cigarettes/day) Smoking Status Reviewed: 12/22/19 Heavy tobacco smoker (more than 10 cigarettes/day) [...] 11/29/2018 Monitor Auto weekly at home Inflate [facility] [place]ads Regular 2-3 pads daily as 90units R32 Robert Felix NP 10/18/2018 needed. [facility] Amlodipine Besylate take 1 tablet by 90tabs Robert Felix NP 10/18/2018 mouth daily 10mg Tablets Ibu take 1 tablet by 120tabs Robert Felix NP 07/12/2018 600mg Tablets mouth three times a day if needed with food Cane standard 1units I63.9 Robert Felix NP 04/11/2018 [facility] adjustable height cane. M79.1 Celexa 1 by [...] Robert Felix NP 08/31/2019 - 7Day 09/13/2019 [facility] Hand Held Shower use daily 1units M06.9 Robert Felix NP 08/31/2019 - [place] 09/13/2019 [facility] M79.7 Medications Administered in Office Medication SIG Qnty Indications Ordering Provider Date Triamcinolone (Kenalog) Marcella Hernandez MD 11/12/2017 Injection Triamcinolone (Kenalog) Suze Polo PA-C 10/05/2017 Injection Immunizations Description No Information Available Vital Signs Date Vital Result Comment 12/22/2019 8:32am Height 61 inches 5'1" Weight 171.00 lb Heart Rate 63 /min BP Systolic Sitting 159 mmHg BP Diastolic Sitting 100 mmHg BP Systolic Recheck 154 mmHg BP Diastolic Recheck 94 mmHg O2 % BldC Oximetry 99 % BMI (Body Mass Index) 32.3 kg/m2 09/13/2019 9:35am Height 61 inches 5'1" Weight 163.00 lb Heart Rate 73 /min BP Systolic 180 mmHg BP Diastolic 100 mmHg Body Temperature 97.2 F O2 % BldC Oximetry 99 % BMI (Body Mass Index) 30.8 kg/m2 Results Test Acquired Date Facility Test Result H/L Range Note Lipid Profile 09/06/2019 [facility] Triglycerides 147 mg/dL 1 (Trig/Chol/HDL) [address] [place] [address] [phone] Cholesterol 154 mg/dL 2 HDL Cholesterol 24.1 mg/dL 3 LDL Cholesterol 101 mg/dL 4 Liver Function 09/06/2019 [facility] Total Protein 6.5 g/dL Normal 6.4-8.9 Panel [address] [place] [address] [phone] Albumin 4.0 g/dL Normal 3.2-5.2 Globulin 2.5 g/dL Normal 2-4 Albumin/Globulin Ratio 1.6 Normal 1-3 Total Bilirubin 0.30 mg/dL Normal 0.2-1.0 Direct Bilirubin 0.10 mg/dL Normal 0.03-0.18 Indirect Bilirubin 0.2 mg/dL Low 0.3-1.0 Alkaline Phosphatase 112 U/L High 34-104 Alt 16 U/L Normal 7-52 Ast 13 U/L Normal 13-39 1 Desirable: <150 Borderline High: 150-199 High: 200-499 Very High: >500 2 Desirable: <200 Borderline High: 200-239 High: >239 3 Low: <40 Desirable: 40-60 High: >60 4 Desirable: <100 Near Optimal: 100-129 Borderline High: 130-159 High: 160-189 Very High: >189 Procedures Date Code Description Status 12/22/2019 07288 EKG Tracing & Interpretation Completed 12/21/2018 [id number] Colonoscopy Completed 01/06/2018 [id number] Mammogram Completed 12/04/2013 [id number] Colonoscopy Completed Medical Devices Description No Information Available Encounters Type Date Location Provider Dx Diagnosis Office Visit 09/13/2019 [facility] Robertthuan Felix DAYTIME CAREGIVER I10 Essential (primary ) 9:20a Medicine - [facility] hypertension F41.9 Anxiety disorder, unspecified F32.89 Other specified depressive episodes G43.009 Migraine w/o aura, not intractable, w/o status migrainosus Z86.73 Prsnl hx of TIA (TIA), and cereb infrc w/o resid deficits Z85.3 Personal history of malignant neoplasm of breast M79.7 Fibromyalgia E78.5 Hyperlipidemia, unspecified G89.29 Other chronic pain F17.210 Nicotine dependence, cigarettes, uncomplicated Assessments Date Code Description Provider 12/22/2019 Z01.818 Encounter for other preprocedural examination Robertthuan Felix NP 12/22/2019 Z85.3 Personal history of malignant neoplasm of breast Robert Isidro , DAYTIME CAREGIVER 12/22/2019 F17.210 Nicotine dependence, cigarettes, uncomplicated Robert Isidro , DAYTIME CAREGIVER 12/22/2019 G89.29 Other chronic pain Robertthuan Felix, DAYTIME CAREGIVER 12/22/2019 E78.5 Hyperlipidemia, unspecified Robert Isidro, DAYTIME CAREGIVER 12/22/2019 M79.7 Fibromyalgia Robert Isidro, DAYTIME CAREGIVER 12/22/2019 I10 Essential (primary) hypertension Robert Isidro, DAYTIME CAREGIVER 12/22/2019 F41.9 Anxiety disorder, unspecified Robert Isidro, DAYTIME CAREGIVER 12/22/2019 I63.9 Cerebral infarction, unspecified Robert Isidro, DAYTIME CAREGIVER 12/22/2019 G40.89 Other seizures Robertthuan Felix, DAYTIME CAREGIVER 12/22/2019 M25.512 Pain in left shoulder Robert Isidro, DAYTIME CAREGIVER 12/22/2019 R20.2 Paresthesia of skin Robert Isidro, DAYTIME CAREGIVER 09/13/2019 I10 Essential (primary) hypertension Robert Isidro, DAYTIME CAREGIVER 09/13/2019 F41.9 Anxiety disorder, unspecified Robetr Felix NP 09/13/2019 F32.89 Other specified depressive episodes Robert Felix NP 09/13/2019 G43.009 Migraine without aura, not intractable, without Robert Felix NP status migrainosus 09/13/2019 Z86.73 Personal history of transient ischemic attack Robert Felix NP (TIA), and cerebral infarction without residual deficits 09/13/2019 Z85.3 Personal history of malignant neoplasm of breast Robert Felix NP 09/13/2019 M79.7 Fibromyalgia Robert Felix NP 09/13/2019 E78.5 Hyperlipidemia, unspecified Robert Felix NP 09/13/2019 G89.29 Other chronic pain Robert Felix NP 09/13/2019 F17.210 Nicotine dependence, cigarettes, uncomplicated Robert Felix NP Plan of Treatment Future Appointment(s):01/04/2020 10:40 am - Robert Felix NP at [facility] Internal Medicine - Ccmob12/22/2019 - Robert Felix NPZ01.818 Encounter for other preprocedural fgghbigffwiE44.3 Personal history of malignant neoplasm of pvvejkA24.210 Nicotine dependence, cigarettes, qzdjrcdcooujfP25.29 Other chronic painE78.5 Hyperlipidemia, jzhqmrbttrvU14.7 PusrkbgwtrvzW95 Essential ( primary) hypertensionNew Medication:Lisinopril 20 mg - 1 by mouth every dayComments:Your blood pressure is elevated today.I have added the Lisinopril. Start taking this once daily.Follow up:2 msxmbA88.9 Anxiety disorder, xomcidqceqnR06.9 Cerebral infarction, bjvfumirgurG47.89 Other ohmvuvbjI94.512 Pain in left shoulderReferral:Gabino Devine MD, Sports Med/Ortho SurgR20.2 Paresthesia of skin Functional Status Description No Information Available Mental Status Description No Information Available Referrals Refer to Reason for Referral Status Appt Date Gabino Devine MD Created [address] [place] [address] [phone] [facility] Sent [address] [facility] [address] [address] [facility] [address] [phone]
--- OUTSIDE RECORDS SUMMARY | 2020-02-09 15:07 | XMS REPORT | Continuity of Care Document ---
:1965 External Reference #:[id number] Author Name Robert Felix NP (transmitted by agent of provider Corinna Kowalski) Address [address] [facility], [place] [address] Care Team Providers Name Role Phone Parmjit Mayberry MD - Interventional Care Team Information Steel Buffer [phone] Pain Medicine Teodora Piña MD - Internal Care Team Information Steel Buffer [phone] Medicine Problems Active Problems Provider Date Depressive [...] 11/29/2018 Monitor Auto weekly at home Inflate [facility] Underpads Regular 2-3 pads daily as 90units R32 Robert Felix NP 10/18/2018 needed. [facility] Amlodipine Besylate take 1 tablet by 90tabs Robert Felix NP 10/18/2018 mouth daily 10mg Tablets Ibu take 1 tablet by 120tabs Robert Felix NP 07/12/2018 600mg Tablets mouth three times a day if needed with food Cane standard 1units I63.9 Robert Felix NP 04/11/2018 [facility] adjustable height cane. M79.1 Celexa 1 by [...] Robert Felix NP 08/31/2019 - 7Day 09/13/2019 [facility] Hand Held Shower use daily 1units M06.9 Robert Felix NP 08/31/2019 - [place] 09/13/2019 [facility] M79.7 Medications Administered in Office Medication SIG [...] Result H/L Range Note Laboratory test 12/29/2019 [facility] TSH 0.87 Normal 0.34- 5.[address] (Thyroid mcIU/[place] [address] Stim [phone] Horm) Vitamin B12 350 pg/mL Normal 180-914 1 CBC Auto 12/29/2019 [facility] White Blood 6.0 10^3/uL Normal 3.5-10.[address] [place] [address] [phone] Red Blood Count 5.30 10^6/uL High 3.70-4.87 [...] Blood Cells % 0.0 Basic Metabolic 12/29/2019 [facility] Sodium 140 mmol/L Normal 135-[address] [place] [address] [phone] Potassium 3.5 mmol/L Normal 3.5-5.0 Chloride 110 mmol/L Normal 101-111 Co2 Carbon Dioxide 21 mmol/L Low 22-32 Anion Gap 9 mmol/L Normal 2-11 Glucose 114 mg/dL High 70-100 Blood Urea Nitrogen 13 mg/dL Normal 6-24 Creatinine 0.77 mg/dL Normal 0.51-0.95 BUN/Creatinine Ratio 16.9 Normal 8-20 Calcium 9.2 mg/dL Normal 8.6-10.3 Egfr Non- 77.5 >60 Egfr 93.8 >60 2 Drug 12/22/2019 [facility] Urine Presumptive Abnormal None [address] Hydrocodone Posi <[place] [address] Screen NOTE> Pain [phone] Clinic Urine Oxycodone Screen None Detected None [...] Detected None Detect 6 Lipid Profile 09/06/2019 [facility] Triglycerides 147 mg/dL 7 (Trig/Chol/HDL) [address] [place], [place] [id number] [phone] Cholesterol 154 mg/dL 8 HDL Cholesterol 24.1 mg/dL 9 LDL Cholesterol 101 mg/dL 10 Liver Function 09/06/2019 [facility] Total Protein 6.5 g/dL Normal 6.4-8.[address] [place] [address] [phone] Albumin 4.0 g/dL Normal 3.2-5.2 Globulin 2.5 [...] >189 Procedures Date Code Description Status 12/22/2019 40122 EKG Tracing & Interpretation Completed 12/21/2018 [id number] Colonoscopy Completed 01/06/2018 [id number] Mammogram Completed 12/04/2013 [id number] Colonoscopy Completed Medical Devices Description No Information Available Encounters Type Date Location Provider Dx Diagnosis Office Visit 09/13/2019 Group Chief Operator Internal Robert Felix NP I10 Essential (primary ) 9:20a Medicine - [...] Description Provider 01/04/2020 I10 Essential (primary) hypertension Robetr Felix NP 12/22/2019 Z01.818 Encounter for other preprocedural examination Robert Felix NP 12/22/2019 Z85.3 Personal history of malignant neoplasm of breast Robert Felix NP 12/22/2019 F17.210 Nicotine dependence, cigarettes, uncomplicated Robert Felix NP 12/22/2019 G89.29 Other chronic pain Robert Felix NP 12/22/2019 M79.7 Fibromyalgia Robert Isidro, HIDE SELECTOR 12/22/2019 I10 Essential (primary) hypertension Robert Isidro, HIDE SELECTOR 12/22/2019 F41.9 Anxiety disorder, unspecified Robert Isidro, HIDE SELECTOR 12/22/2019 I63.9 Cerebral infarction, unspecified Robert Isidro, HIDE SELECTOR 12/22/2019 G40.89 Other seizures Robert Isidro, HIDE SELECTOR 12/22/2019 M25.512 Pain in left shoulder Robert Isidro, HIDE SELECTOR 12/22/2019 R20.2 Paresthesia of skin Robert Isidro, HIDE SELECTOR 12/22/2019 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, unspecified Robert Isidro, HIDE SELECTOR 09/13/2019 I10 Essential (primary) hypertension Robertthuan Felix, HIDE SELECTOR 09/13/2019 F41.9 Anxiety disorder, unspecified Robertthuan Felix, HIDE SELECTOR 09/13/2019 F32.89 Other specified depressive episodes Robert Isidro, HIDE SELECTOR 09/13/2019 G43.009 Migraine without aura, not intractable, without Robertthuan Felix NP status migrainosus 09/13/2019 Z86.73 Personal history of transient ischemic attack Robert Felix NP (TIA), and cerebral infarction without residual deficits 09/13/2019 Z85.3 Personal history of malignant neoplasm of breast Robertthuan Felix HIDE SELECTOR 09/13/2019 M79.7 Fibromyalgia Robert Felix, HIDE SELECTOR 09/13/2019 E78.5 Hyperlipidemia, unspecified Robertthuan Felix, HIDE SELECTOR 09/13/2019 G89.29 Other chronic pain Robertthuan Felix HIDE SELECTOR 09/13/2019 F17.210 Nicotine dependence, cigarettes, uncomplicated Robertthuan Felix NP Plan of Treatment Future Appointment(s):01/16/2020 10:30 am - Gabino Devine MD at [facility]/04/2020 - Robert Felix NPI10 Essential (primary) hypertensionComments:Continue taking the Amlodipine and the Lisinopril. Functional Status Description No Information Available Mental Status Description No Information Available Referrals Refer to Reason for Referral Status Appt Date Gabino Devine MD Sent 01/16/[address] [place] [address] [phone] [facility] Sent [address] [facility] [address] [address] [facility] [address] [phone]
[2020-02-09] MEDS ORDERED: Acyclovir* 400 MG TAB PO ONE (15:23)
[2020-02-09 16:42] VITALS: BP 147/72
== END 2020-02-09 16:40 | disposition home or self-care (01) ==
LOC: ED 14:10
DX: R10.9 Unspecified abdominal pain (principal); F17.210 Nicotine dependence, cigarettes, uncomplicated; Z85.3 Personal history of malignant neoplasm of breast; F41.9 Anxiety disorder, unspecified; F32.9 Major depressive disorder, single episode, unspecified; E78.00 Pure hypercholesterolemia, unspecified; I10 Essential (primary) hypertension; Z79.82 Long term (current) use of aspirin; Z79.899 Other long term (current) drug therapy
CPT/HCPCS: 71046; 99282; A9270-GY